=== PATIENT | female | born 1995 | race African-American/Black ===

== ENCOUNTER 2017-07-08 17:29 | Inpatient (IN) | payer BC, OTHER ==
[2017-07-08] MEDS ORDERED: SODIUM CHLORIDE 1,000 ML IV STA (17:43)
--- NOTE | 2017-07-08 17:57 | PDOC ---
History of Present Illness - General Chief Complaint: Blood Sugar Problem Stated Complaint: blood sugar r/o dka Time Seen by Provider: 07/08/17 17:56 History Source: Patient Exam Limitations: No Limitations Past History - Past Medical History Allergies/Adverse Reactions: Allergies Allergy/AdvReac Type Severity Reaction Status Date / Time steroids Allergy Uncoded 07/08/17 17:33 Diabetes: Yes (iddm) Thyroid Disease: Yes (hypo) - Psycho/Social/Smoking Cessation Hx Anxiety: No Suicidal Ideation: No Smoking History: Never smoked Have you smoked in the past 12 months: No Information on smoking cessation initiated: No Hx Alcohol Use: No Drug/Substance Use Hx: No Substance Use Type: None *Physical Exam - Vital Signs Last Vital Signs Temp Pulse Resp BP Pulse Ox 98.2 F 119 H 26 H 145/66 100 07/08/17 17:33 07/08/17 17:33 07/08/17 17:33 07/08/17 17:33 07/08/17 17:33 Medical Decision Making - Medical Decision Making 07/08/17 17:57 A portion of this note was documented by scribe services under my direction. I have reviewed the details of the note, within reason, and agree with the documentation with the following case summary and management plan written by me. Nursing documentation reviewed and incorporated into medical decision making
--- NOTE | 2017-07-08 17:58 | PDOC ---
History of Present Illness - General History Source: Patient Exam Limitations: No Limitations - History of Present Illness Initial Comments: 07/08/17 18:29 Patient is a 21 year old female with a significant past medical history of IDDM , hypothyroid and hx of DKA who presents to the ED with difficulty breathing and constant chest discomfort since last night. Patient reports nausea and multiple episode of yellow emesis since this morning. Patient reports mid abdominal discomfort. She also reports decreased PO intake and urinary output. She states that she last measured her blood sugar 2 days ago to be 30. She states that her last insulin injection was a day ago. She states that her last levothyroxine dose was couple of weeks ago. ALL - steroids <Patricia Chambers - Last Filed: 07/09/17 01:16> <Nicolas Jimenez - Last Filed: 07/09/17 01:36> - General Chief Complaint: Blood Sugar Problem Stated Complaint: blood sugar r/o dka Time Seen by Provider: 07/08/17 17:56 Past History <Patricia Chambers - Last Filed: 07/09/17 01:16> - Past Medical History Diabetes: Yes (iddm) Thyroid Disease: Yes (hypo) - Psycho/Social/Smoking Cessation Hx Anxiety: No Suicidal Ideation: No Smoking History: Never smoked Have you smoked in the past 12 months: No Information on smoking cessation initiated: No Hx Alcohol Use: No Drug/Substance Use Hx: No Substance Use Type: None <Nicolas Jimenez - Last Filed: 07/09/17 01:36> - Past Medical History Allergies/Adverse Reactions: Allergies Allergy/AdvReac Type Severity Reaction Status Date / Time Corticosteroids Allergy Verified 07/08/17 18:13 (Glucocorticoids) steroids Allergy Uncoded 07/08/17 17:33 Review of Systems - Review of Systems Able to Perform ROS?: Yes Comments:: 07/08/17 18:30 CONSTITUTIONAL: No fever, no chills, no fatigue EYES: No visual changes ENT: No ear pain, no sore throat CARDIOVASCULAR: +chest discomfort. No chest pain, no palpitations RESPIRATORY: +SOB. No cough GI: +abdominal discomfort, nausea, vomiting . No abdominal pain, no constipation , no diarrhea GENITOURINARY: No dysuria, no frequency, no hematuria MUSKULOSKELETAL: No backpain, no joint pain, no myalgias SKIN: No rash NEURO: No headache <Patricia Chambers - Last Filed: 07/09/17 01:16> *Physical Exam - Vital Signs Last Vital Signs Temp Pulse Resp BP Pulse Ox 98.2 F 119 H 26 H 145/66 100 07/08/17 17:33 07/08/17 17:33 07/08/17 17:33 07/08/17 17:33 07/08/17 17:33 - Physical Exam Comments: 07/08/17 18:31 CONSTITUTIONAL: (+)Pale appearing, +in moderate distress HEAD: Normocephalic; atraumatic EYES: (+)Dry mucous membranes. No conjunctival pallor. Sclera are non- icteric.PERRL; EOM intact ENMT: External appears normal; normal oropharynx NECK: Supple; nontender; no cervical lymphadenopathy CARD: (+)tachycardia. Normal S1, S2; no murmurs, rubs, or gallops RESP: (+)extremely tachypneic. Normal chest excursion with respiration; breath sounds clear and equal bilaterally; no wheezes, rhonchi, or rales ABD: Soft, non-distended; non-tender; no palpable organomegaly, no palpable hernias EXT: Normal ROM in all four extremities; non-tender to palpation; distal pulses intact SKIN: Warm, dry, no rash NEURO: No focal neurological deficiencies. <Patricia Chambers - Last Filed: 07/09/17 01:16> - Vital Signs Last Vital Signs Temp Pulse Resp BP Pulse Ox 98.2 F 119 H 26 H 145/66 100 07/08/17 17:33 07/08/17 17:33 07/08/17 17:33 07/08/17 17:33 07/08/17 17:33 <Nicolas Jimenez - Last Filed: 07/09/17 01:36> Heart Score/ECG Review #1 07/08/17 18:38 Sinus tachycardia at 117 bpm <Patricia Chambers - Last Filed: 07/09/17 01:16> ED Treatment Course - LABORATORY CBC & Chemistry Diagram: 07/08/17 18:15 07/08/17 22:30 <Patricia Chambers - Last Filed: 07/09/17 01:16> - LABORATORY CBC & Chemistry Diagram: 07/08/17 18:15 07/08/17 22:30 <Nicolas Jimenez - Last Filed: 07/09/17 01:36> Medical Decision Making - Critical Care Time Total Critical Care Time (minutes): 55 Critical Care Statement: The care of this patient involved high complexity decision making to prevent further life threatening deterioration of the patient 's condition and/or to evaluate & treat vital organ system(s) failure or risk of failure. - Medical Decision Making 07/09/17 01:31 Patient was seen and evaluated by me immediately upon arrival. This MDM is being recorded post admission. Patient is ill-appearing 21-year-old female with history of diabetes and hypothyroidism (noncompliant with her medication regimen) who presents to the ER with atraumatic substernal chest discomfort that is reproducible to palpation , polydipsia and polyuria, generalized weakness and malaise. In the ER, patient is tachypneic with Kussmaul's respirations; patient is also noted to be mildly tachycardic and normotensive. CBC is within normal limit. CMP reveals significant hyperglycemia, increased anion gap, decreased sodium bicarbonate and mildly increased potassium consistent with diabetic ketoacidosis. VBG reveals significant acidosis with pH of 7.04. Acetone is noted to be 3+. EKG reveals no evidence of acute ischemia or right sided heart strain. Chest x- ray reveals no evidence of infiltrate or effusion. I do not suspect a PE at this time. Serial abdominal exams revealed no focal tenderness. Patient had received 1500 mL of normal saline, acetaminophen and morphine-2 mg IV for pain control; insolent bolus of 10 units followed by an insolent drip of 10 units an hour was initiated. Patient was admitted to the ICU further management of DKA. <Nicolas Jimenez - Last Filed: 07/09/17 01:36> *DC/Admit/Observation/Transfer - Attestations Scribe Attestion: 07/08/17 18:34 Documentation prepared by NURIA Perez, acting as director of medical education for Nicolas Jimenez MD. <Patricia Chambers - Last Filed: 07/09/17 01:16> - Discharge Dispostion Admit: Yes - Attestations Physician Attestion: 07/09/17 01:30 The documentation was prepared by the scribe under my direct supervision. I have reviewed the documentation which correctly represents the findings, medical decision-making and critical action taken by me. <Nicolas Jimenez - Last Filed: 07/09/17 01:36> Diagnosis at time of Disposition: DKA (diabetic ketoacidoses) Qualifiers: Diabetes mellitus type: other specified (including SIDRA) Diabetes mellitus complication detail: without coma Qualified Code(s): E13.10 - Other specified diabetes mellitus with ketoacidosis without coma Hypothyroidism Qualifiers: Hypothyroidism type: unspecified Qualified Code(s): E03.9 - Hypothyroidism, unspecified - Referrals
[2017-07-08 18:29] LABS: VENOUS BLOOD GAS HCO3 5.6 meq/L (19-25)
[2017-07-08 18:30] LABS: VENOUS PH 7.04 (7.32-7.42)
[2017-07-08 18:47] LABS: BASOPHIL 0.4 % (0-2.0); EOSINOPHIL 1.2 % (0-4.5); MCH 33.7 pg (25.7-33.7); MCHC 31.7 g/dl (32.0-36.0); MEAN CELL VOLUME 106.2 fl (80-96); MEAN PLT VOLUME 9.4 fl (7.5-11.1); NEUTROPHILS 54.4 % (42.8-82.8); PLATELET COUNT 300 K/MM3 (134-434); RDW 14.9 % (11.6-15.6); WHITE BLOOD COUNT 7.7 K/mm3 (4.0-10.0)
[2017-07-08] MEDS ORDERED: ACETAMINOPHEN 1000 MG/100 ML VIAL (NON FORMULARY) IVPB ONE (18:53)
[2017-07-08] MEDS ORDERED: ACETAMINOPHEN INJECTION 100 ML IVPB ONE (18:55)
[2017-07-08 19:22] LABS: ALBUMIN 4.1 g/dl (3.4-5.0); ALK PHOS 132 U/L (45-117); AMYLASE 74 U/L (25-115); ANION GAP 24 (8-16); BILIRUBIN,TOTAL 0.8 mg/dL (0.2-1.0); CALCIUM 8.7 mg/dL (8.5-10.1); CO2 6 mmol/L (21-32); CREATININE 1.8 mg/dL (0.55-1.02); SGPT/ALT 51 U/L (12-78); TOT PROT 8.7 g/dl (6.4-8.2)
[2017-07-08 19:23] LABS: SGOT/AST 24 U/L (15-37)
[2017-07-08 19:24] LABS: GLUCOSE,RANDOM 616 mg/dL (74-106)
[2017-07-08] MEDS ORDERED: INSULIN REGULAR HUMAN 100 UNITS/ML *VIAL IVPUSH ONE (19:29)
[2017-07-08] MEDS ORDERED: morphine CARPU-JECT 2 MG/1 ML DISP.SYRIN IVPUSH ONE ×2 (19:36→19:44)
[2017-07-08] MEDS ORDERED: morphine CARPU-JECT 4 MG/1 ML DISP.SYRIN ONE (19:43)
[2017-07-08] MEDS: INSULIN REGULAR 100 UNITS in SODIUM CHLORIDE 99 ML IVPB SCH ×2 (19:59→21:30)
[2017-07-08] MEDS ORDERED: LEVOTHYROXINE NA 125 MCG TABLET (FP) PO ONE (20:09)
[2017-07-08 20:13] LABS: URINE APPEARANCE CLEAR; URINE BILIRUBIN NEGATIVE (NEGATIVE); URINE BLOOD 1+ (NEGATIVE); URINE COLOR STRAW; URINE GLUCOSE (UA) 3+ (NEGATIVE); URINE KETONE 2+ (NEGATIVE); URINE LEUK ESTERASE NEGATIVE (NEGATIVE); URINE NITRITE NEGATIVE (NEGATIVE); URINE UROBILINOGEN NEGATIVE mg/dL (0.2-1.0)
--- NOTE | 2017-07-08 20:16 | PN ---
Teaching Attending Note Name of Resident: Sergio Andrew ATTENDING PHYSICIAN STATEMENT I saw and evaluated the patient. I reviewed the resident's note and discussed the case with the resident. I agree with the resident's findings and plan as documented. SUBJECTIVE: 21 YO F with pmhx of IDDM, hypothyriodism and Hx of DKA who presents with nausea and chest discomfort. Also notes shortness of breath. States she has had mutliple vomiting episodes (yellow in color). Notes decreased PO intake and abdominal pain. States she last took her blood sugar 2 days ago and it was 30. Also notes she did not take her Levothryoxine dose and it was taken couple weeks agp. She last took her insulin 1 charles go, OBJECTIVE: Physical: VS: Vital Signs Period Temp Pulse Resp BP Sys/Kohli Pulse Ox Last 24 Hr 98.2 F 119 26 145/66 100 GEN: Mild distress, resting in bed, able to speak full sentences HEENT: NCAT, PERRL, Throat without erythema or exudates CARD: RRR S1,S2 RESP: CTAB ABD: BSx4, NTD to palpation EXT: - C/C/E CBCD WBC 7.7 K/mm3 (4.0-10.0) 07/08/17 18:15 RBC 3.76 M/mm3 (3.60-5.2) 07/08/17 18:15 Hgb 12.7 GM/dL (10.7-15.3) 07/08/17 18:15 Hct 39.9 % (32.4-45.2) 07/08/17 18:15 MCV 106.2 fl (80-96) H 07/08/17 18:15 MCHC 31.7 g/dl (32.0-36.0) L 07/08/17 18:15 RDW 14.9 % (11.6-15.6) 07/08/17 18:15 Plt Count 300 K/MM3 (134-434) 07/08/17 18:15 MPV 9.4 fl (7.5-11.1) 07/08/17 18:15 CMP Sodium 131 mmol/L (136-145) L 07/08/17 18:15 Potassium 5.5 mmol/L (3.5-5.1) H 07/08/17 18:15 Chloride 101 mmol/L (98-107) 07/08/17 18:15 Carbon Dioxide 6 mmol/L (21-32) L 07/08/17 18:15 Anion Gap 24 (8-16) H 07/08/17 18:15 BUN 16 mg/dL (7-18) 07/08/17 18:15 Creatinine 1.8 mg/dL (0.55-1.02) H 07/08/17 18:15 Creat Clearance w eGFR 35.87 (>60) 07/08/17 18:15 Random Glucose 616 mg/dL (74-106) H* 07/08/17 18:15 Calcium 8.7 mg/dL (8.5-10.1) 07/08/17 18:15 Total Bilirubin 0.8 mg/dL (0.2-1.0) 07/08/17 18:15 AST 24 U/L (15-37) 07/08/17 18:15 ALT 51 U/L (12-78) 07/08/17 18:15 Alkaline Phosphatase 132 U/L (45-117) H 07/08/17 18:15 Total Protein 8.7 g/dl (6.4-8.2) H 07/08/17 18:15 Albumin 4.1 g/dl (3.4-5.0) 07/08/17 18:15 CXR- No acute Process EKG: ASSESSMENT AND PLAN: 21 F with Pmhx of IDDM who presents with chest discomfort and shortness of breath found to be in DKA 1.) Diabetic Ketoacidosis - Insulin 0.1U/Kg/hr gtt - Serum Glucose reaches 200--> reduce insulin gtt to 0.05/kg/hr - IVF 250/hr- when glucose 200 switch to D5 1/2 NS - Corrected Na 139-1/2 NS for IVF - Chk BMP, Vebous Ph, FS Q 2hrs - Keep Insulin infusion after Gap closes for 1-2hrs, initate SC regimen, when pt. can eat - K<3.3 Hold Insulin and give K 20-40 MeQ/hr until >3.3 - K 3.3-5.3 give 20-30 MeQ/K in IVF 2.) Chest Discomfort/Shortness of Breath - Wells Score- 1.5 - Tachycardia may be due more likely to dehydration - Chk. Troponin/EKG 3.) TONI - Most likely due to pre-renal losses - Chk. U Lytes - IVF 4.) Hypothyriodism - Elevated TSH- Pt. non-compliant with Levothyroxine - Levothyroxien given in ED - C/W home dose- Chk. TSH in 6 weeks 3.) Dvt Ppx - Heparin [address] in ICU CC Time: 40 Minutes
[2017-07-08] MEDS ORDERED: SODIUM CHLORIDE 1,000 ML IV SCH (20:30)
[2017-07-08 20:39] LABS: URINE PROTEIN 1+ (NEGATIVE)
[2017-07-08] MEDS ORDERED: SODIUM CHLORIDE 0.45% 1,000 ML IV SCH ×2 (20:45→21:55)
[2017-07-08 20:49] LABS: URINE BACTERIA RARE /hpf (NONE SEEN); URINE MUCUS RARE; URINE RBC <1 /hpf (0-3); URINE WBC 2 /hpf (3-5)
--- NOTE | 2017-07-08 21:24 | HP ---
Admitting History and Physical - Admission History of Present Illness: 21yo F with significant history of IDDM, hypothyroidism, and history of DKA admission 2-3 years ago who presents to the ED with SOB, mid-sternal chest discomfort, and centrally located abdominal pain. Pt states these problems started 1 day ago and reports her last BGM was 30 about 2 days ago. Pt also reports nausea and vomiting yellowish emesis when her symptoms developed. Her godmother is with her and describes pt being in normal health about 2 days ago and receiving a call earlier this afternoon about the pt needing to go to the hospital. Godmother reports her symptoms have been the same since she met up with her and the CP and SOB have been consistent and not increased in intensity since. Pt was hospitalized for DKA about 2 years prior according to family's accounts. Per patient, she had stopped taking her levothyroxine "a few days ago " (hypothesized by family because of financial reasons), however she states she is very consistent with insulin injections. Her last injection was 1 day ago. Denies any acute illnesses, dizziness, headache, and leg edema. ER course notable for: 1) EKG - NSR @114 bpm, no other abnormalities seen 2) CXR - by my read no cardiomegaly, no congestion, no infilitrates noted; normal 3) CMP - 616 random glucose, 1.8 Cr, corrected Na of 139, HCO3 6, K 5.6; UA - Ketonuria; TSH - 4) VBG - pH of 7.06 5) Insulin bolus of 8 initiated with insulin gtt 6) Levothyroxine 125mcg administered 7) 1L NS administered History Source: Patient, Family Member - Past Medical History Endocrine: Yes: Diabetes Mellitus (IDDM), Hypothyroidism - Past Surgical History Additional Past Surgical History: L leg Anterior fasciotomy for compartment syndrome s/p trauma - 2 years ago - Smoking History Smoking history: Never smoked Have you smoked in the past 12 months: No - Alcohol/Substance Use Hx Alcohol Use: No History of Substance Use: reports: None - Social History History of Recent Travel: No Home Medications - Allergies Allergies/Adverse Reactions: Allergies Allergy/AdvReac Type Severity Reaction Status Date / Time Corticosteroids Allergy Verified 07/08/17 18:13 (Glucocorticoids) steroids Allergy Uncoded 07/08/17 17:33 Review of Systems - Review of Systems Constitutional: reports: Loss of Appetite Respiratory: reports: SOB Gastrointestinal: reports: Abdominal Pain, Nausea, Vomiting Genitourinary: reports: Other (Polyuria) Neurological: denies: Dizziness, Headache Physical Examination Vital Signs: Vital Signs Temperature 98.2 F 07/08/17 17:33 Pulse Rate 119 H 07/08/17 17:33 Respiratory Rate 26 H 07/08/17 17:33 Blood Pressure 145/66 07/08/17 17:33 O2 Sat by Pulse Oximetry (%) 100 07/08/17 17:33 Constitutional: Yes: Moderate Distress Eyes: Yes: Conjunctiva Clear, EOM Intact, PERRL HENT: Yes: Other (Sweet smelling breath) Neck: Yes: Supple, Trachea Midline Cardiovascular: Yes: Tachycardia (regular rhythm). No: Murmur Respiratory: Yes: Tachypnea. No: Accessory Muscle Use, On Nasal O2, Rhonchi, Wheezes Gastrointestinal: Yes: Soft, Tenderness. No: Hepatomegaly, Splenomegaly, Tenderness, Rebound, Vomiting Edema: No Neurological: Yes: Alert Psychiatric: Yes: Alert Imaging - Results Chest X-ray: Image Reviewed EKG: Image Reviewed Assessment/Plan UPDATE 00:01 07/09 --First BMP recheck came back with Serum glucose at 207 (from 616), Anion gap remaining at 24, serum CO2 down to 3 (from 6), K 4.1 (down from 5.6) --Will change fluids to D5-1/2NS-40mEQKCl at a rate of 300 mls/hr (increased from 250mls/hr) due to these changes -- 21yo F IDDM and hypothyroidism presenting with DKA in ER. CP noted mid-sternally ; ekg: NSR, tachycardia, no ST abnormalities seen; 1) DKA --serum CO2 6, VBG 7.06, Anion gap of 24, Ketonuria, K 5.6, Glucose 616 --BGM q1-2H --VBG q2H --BMP q2H --Continue insulin gtt 0.1 U/kg/hr IV --IF gap remains open and glucose 200-250 decrease dose to 0.02-0.05U/kg/ hr IV and add D5 to fluids --IF gap closes and patient tolerates PO, continue drip 1-2hrs while long- acting insulin administered; then d/c drip --1/2NS @250mls/hr --Corrected Na 139 currently --No need for K rider due to K 5.6 initially; will monitor 2) Chest discomfort --Troponin negative x1; will trend one more due to symptoms --EKG - NSR Tachycardic and no ST abnormalities --Wells score - 1.5 --CXR normal --Morphine 4mg q6 PRN on board for pain control --Most likely related to acidosis from DKA; will continue to monitor 3) Hypothyroidism --TSH 86.6 --Related to noncompliance to home dose --Levothyroxine 125mcg given in ER x1 --Continue home dose of 150mcg Daily (godmother confirmed 150mcg dosage) --Outpatient follow-up with cooler worker for TFT monitoring 4) TONI --Most likely pre-renal azotemia related to DKA --Urine Cr 1.8 currently with no baseline --F/U urine lytes --Will monitor and hydrate per DKA plan FEN: Fluids: 1/2NS @250mls/hr Electrolyte abnormalities: Corrected Na139; K5.6 will decrease with insulin therapy (monitor) Nutrition: NPO for now, advance as tolerated when anion gap closes PPX: DVT -- Heparin 5000SQ q8 GI -- Not indicated at current time Dispo: Admit to ICU for DKA management Visit type - Emergency Visit Emergency Visit: Yes ED Registration Date: 07/08/17 Care time: The patient presented to the Emergency Department on the above date and was hospitalized for further evaluation of their emergent condition. - New Patient This patient is new to me today: Yes Date on this admission: 07/09/17 - Critical Care Critical Care patient: Yes Total Critical Care Time (in minutes): 40 Critical Care Statement: The care of this patient involved high complexity decision making to prevent further life threatening deterioration of the patient 's condition and/or to evaluate & treat vital organ system(s) failure or risk of failure.
[2017-07-08 21:42] VITALS: BMI 27.2
[2017-07-08] MEDS: CHLORHEXIDINE GLUCONATE 4% CLEANSER FOR DECOLONIZATION TP SCH (22:16)
[2017-07-08] MEDS: MUPIROCIN 2% TOPICAL OINTMENT FOR DECOLONIZATION NS SCH (22:16)
--- NOTE | 2017-07-08 22:36 | CONSULT ---
Consult - text type - Consultation Consultation Note: PULM/CCM Pt seen and examined in the ICU Request: Jasmina CC: Shortness of breath Hx obtained from Pt and Chart HPI: Briefly Ms Valdez is a 21 y/o woman with PHMX significant for IDDM (occ. admits for DKA/hyperglycemia), and hypothyroidism who presented to ED this afternoon with shortness of breath, upper epigastric/mid sternal pain, abd pain and vomititng x 24 hrs. She relates stopping her home insulin 48hrs ago when she had a low sugar. She also stopped her thyroid meds a few days prior to that. She has had non-bloody bilious emesis starting around the same time. There may be financial problems driving some of her compliance issues but per pt Godmother she is generally pretty diligent with her insulin. She denies LOC , fever, dysuria, cough, diarrhea, falls. In ED pt was normothermic, normotensive, saturating fine on RA. CXR was clear. UA was clean but with +ketones. Labs notable for glucose 616, HCo3 6, K 5.6, Cr of 1.8. AG was 25. TSH elevated >80. pH 7.0 on VBG. Her corrected Na was 139, but pt appeared clinically dry. She received bolus and gtt of Insulin. Two liters of fluid given. IV synthroid given as well. As there was no localizing source of infection and a clear hx of compliance issue no abx were started. Tx to ICU for management on diabetic ketoacidosis. Past Medical History Endocrine Diabetes Mellitus (IDDM),Hypothyroidism No past surgeries Social History Smoking history Never smoked Have you smoked in the past 12 No months Hx Alcohol Use No History of Substance Use None Home Meds: Insulin synthroid Active Medications Chlorhexidine Gluconate (Hibiclens For Decolonization -) 1 applic TP HS CHELLE Last Admin: 07/08/17 22:16 Dose: 1 applic Heparin Sodium (Porcine) (Heparin -) 5,000 unit SQ TID CHELLE Insulin Human Regular 100 (units/ Sodium Chloride) 100 mls @ 9.97 mls/hr IVPB TITR CHELLE; 0.1 UNITS/KG/HR PRN Reason: Protocol Last Admin: 07/08/17 21:30 Dose: 10 mls/hr Sodium Chloride (1/2 Normal Saline) 1,000 mls @ 250 mls/hr IV ASDIR CHELLE Last Admin: 07/08/17 22:15 Dose: 250 mls/hr Levothyroxine Sodium (Synthroid -) 150 mcg PO DAILY@0700 [facility] Morphine Sulfate (Morphine Injection -) 4 mg IVPUSH Q4H PRN PRN Reason: PAIN Mupirocin (Bactroban Ointment (For Decolonization) -) 1 applic NS BID [facility] Stop: 07/13/17 21:59 Last Admin: 07/08/17 22:16 Dose: 1 applic 9 point ROS unrevealing except as above in HPI EKG: ST, normal axis, no ST changes CXR: clear, no infiltrate Vital Signs Temp 97.8 F 07/08/17 20:25 Pulse 109 H 07/08/17 20:25 Resp 16 07/08/17 20:25 BP 120/85 07/08/17 20:25 Pulse Ox 99 07/08/17 20:25 Intake & Output 07/07/17 07/08/17 07/08/17 23:59 11:59 23:59 Weight 83.603 kg Other: Voiding Method Indwelling Catheter Height 5 ft 9 in Body Mass Index (BMI) 27.2 Weight Measurement Method Built in [facility] Weight Measurement Method Est/Stated by Patient PE: HEENT: dry oral mucosa, no thrush, PERRL PULM: clear anterior, no wheezes CV: tachy, regular, no m/r/g appreciated ABG: soft, slight diffuse tenderness, non localizing, no rebound EXT: dry skin, no edema Neuro: intact, non focal exam A/ 21 y/o woman with DKA, TONI, and hypothyroidism in setting of compliance issues. ENDO: DKA, hypothyroidism -Q1h FS -repeat BMP sent, replete K < 5. -Continue insulin gtt 0.1 U/kg/hr IV until gap closed, glucose < 25 and able to eat, then transition with 2 hr bridge -If gap remains open and glucose 200-250 decrease dose to 0.02-0.05U/kg/hr IV and add D5 to fluids -DM education -IV synthroid given in ED, start PO tomorrow at normal dose, repeat TSH prior to discharge Renal : TONI likely pre-renal, dehydration/osmotic diuresis -volume resuscitation -close monitoring of UOP -urine lytes/FENA FEN: Fluids: 1/2NS @250mls/hr for 4 hrs then decrease to 125 Nutrition: NPO for now, advance as tolerated when anion gap closes PPX: DVT -- Heparin 5000SQ q8, no indication for GI prophy Dispo: ICU monitoring, med surg once gap closed and eating Jatin Dhillon ACNP [id number] 35min CCT Critical Care Total Critical Care Time (in minutes): 35 Critical Care Statement: The care of this patient involved high complexity decision making to prevent further life threatening deterioration of the patient 's condition and/or to evaluate & treat vital organ system(s) failure or risk of failure.
[2017-07-08 23:08] LABS: CALCIUM 7.7 mg/dL (8.5-10.1); CREATININE 1.3 mg/dL (0.55-1.02); GLUCOSE,RANDOM 207 mg/dL (74-106)
[2017-07-08 23:11] LABS: ANION GAP 24 (8-16); CO2 3 mmol/L (21-32)
[2017-07-08] MEDS: D5-1/2NS+40 MEQ KCL - 1,000 ML IV SCH (23:48)
[2017-07-09] MEDS: morphine CARPU-JECT 4 MG/1 ML DISP.SYRIN IVPUSH PRN ×2 (02:44→23:45)
[2017-07-09 02:58] LABS: VENOUS BLOOD GAS HCO3 10.4 meq/L (19-25); VENOUS PH 7.22 (7.32-7.42)
[2017-07-09 03:31] LABS: ANION GAP 19 (8-16); CALCIUM 7.7 mg/dL (8.5-10.1); CO2 10 mmol/L (21-32); CREATININE 1.3 mg/dL (0.55-1.02); GLUCOSE,RANDOM 175 mg/dL (74-106)
[2017-07-09] MEDS: HEPARIN NA (PORCINE) 5,000 UNITS/ML 1ML VIAL SQ SCH ×4 (05:42→21:39)
[2017-07-09] MEDS: LEVOTHYROXINE NA 75 MCG TABLET (FP) PO SCH (06:40)
[2017-07-09] MEDS: D5-1/2NS+40 MEQ KCL - 1,000 ML IV SCH ×2 (06:41→23:30)
[2017-07-09] MEDS ORDERED: LEVOTHYROXINE NA 50 MCG TABLET (FP) PO SCH (07:00)
[2017-07-09 08:46] LABS: URINE CREATININE < 13.0 mg/dL (20-320)
[2017-07-09 09:07] LABS: ANION GAP 12 (8-16); CALCIUM 7.2 mg/dL (8.5-10.1); CO2 13 mmol/L (21-32); CREATININE 1.2 mg/dL (0.55-1.02); GLUCOSE,RANDOM 152 mg/dL (74-106)
--- NOTE | 2017-07-09 10:01 | PN ---
Teaching Attending Note Name of Resident: Sergio Alexandre ATTENDING PHYSICIAN STATEMENT I saw and evaluated the patient. I reviewed the resident's note and discussed the case with the resident. I agree with the resident's findings and plan as documented. SUBJECTIVE: Patient seen and examined in the ICU. Sleepy but arousable. Remains on IV Insulin drip. Noted improving AG, but bicarb still only 13 (likely related to TONI). Intake & Output 07/06/17 07/07/17 07/08/17 07/09/17 23:59 23:59 23:59 23:59 Output Total 800 900 Balance -800 -900 Weight 184 lb 5 oz 190 lb Last Vital Signs Temp Pulse Resp BP Pulse Ox 98 F 98 H 14 94/49 99 07/09/17 03:00 07/09/17 08:00 07/09/17 08:00 07/09/17 08:00 07/08/17 20:25 Active Medications Acetaminophen (Tylenol -) 650 mg PO Q4H PRN PRN Reason: FEVER OR PAIN Chlorhexidine Gluconate (Hibiclens For Decolonization -) 1 applic TP HS CHELLE Last Admin: 07/08/17 22:16 Dose: 1 applic Heparin Sodium (Porcine) (Heparin -) 5,000 unit SQ TID CHELLE Last Admin: 07/09/17 06:54 Dose: Not Given Insulin Human Regular 100 (units/ Sodium Chloride) 100 mls @ 9.97 mls/hr IVPB TITR CHELLE; 0.1 UNITS/KG/HR PRN Reason: Protocol Last Titration: 07/09/17 00:43 Dose: 0.02 units/kg/hr Dextrose/Sodium Chloride (D5-1/2ns+40 Meq Kcl -) 1,000 mls @ 300 mls/hr IV ASDIR CHELLE Last Admin: 07/09/17 06:41 Dose: 300 mls/hr Levothyroxine Sodium (Synthroid -) 150 mcg PO DAILY@0700 [facility] Last Admin: 07/09/17 06:40 Dose: 150 mcg Morphine Sulfate (Morphine Injection -) 4 mg IVPUSH Q4H PRN PRN Reason: PAIN Last Admin: 07/09/17 02:44 Dose: 4 mg Mupirocin (Bactroban Ointment (For Decolonization) -) 1 applic NS BID CHELLE Stop: 08/20/17 21:59 Last Admin: 07/08/17 22:16 Dose: 1 applic Constitutional: Yes: Sleepy but arousable Eyes: Yes: Conjunctiva Clear, EOM Intact, PERRL HENT: Yes: dry mucous membranes Neck: Yes: Supple, Trachea Midline Cardiovascular: Yes: Tachycardia (regular rhythm). No: Murmur Respiratory: Yes: Clear. No: Accessory Muscle Use, On Nasal O2, Rhonchi, Wheezes Gastrointestinal: Yes: Soft, Tenderness. No: Hepatomegaly, Splenomegaly, Tenderness, Rebound, Vomiting Edema: No Neurological: Yes: Sleepy Psychiatric: Yes: Sleepy Laboratory Results - last 24 hr 07/08/17 07/08/17 07/08/17 18:00 18:06 18:15 WBC 7.7 RBC 3.76 Hgb 12.7 Hct 39.9 MCV 106.2 H MCH 33.7 MCHC 31.7 L RDW 14.9 Plt Count 300 MPV 9.4 Neutrophils % 54.4 Lymphocytes % 36.6 Monocytes % 7.4 Eosinophils % 1.2 Basophils % 0.4 VBG pH 7.04 L* POC VBG pCO2 21.5 L POC VBG pO2 32.6 Mixed VBG HCO3 5.6 L* Sodium Potassium Chloride Carbon Dioxide Anion Gap BUN Creatinine Creat Clearance w eGFR POC Glucometer Random Glucose Lactic Acid Calcium Magnesium Total Bilirubin AST ALT Alkaline Phosphatase Troponin I < 0.02 Total Protein Albumin Total Amylase Lipase TSH Serum , Qual Urine Color Urine Appearance Urine pH Ur Specific [place] Urine Protein Urine Glucose (UA) Urine Ketones Urine Blood Urine Nitrite Urine Bilirubin Urine Urobilinogen Ur Leukocyte Esterase Urine RBC Urine WBC Urine Bacteria Urine Mucus Urine Creatinine Acetone, Qual 07/08/17 07/08/17 07/08/17 18:15 18:15 18:15 WBC RBC Hgb Hct MCV MCH MCHC RDW Plt Count MPV Neutrophils % Lymphocytes % Monocytes % Eosinophils % Basophils % VBG pH POC VBG pCO2 POC VBG pO2 Mixed VBG HCO3 Sodium 131 L Potassium 5.5 H Chloride 101 Carbon Dioxide 6 L Anion Gap 24 H BUN 16 Creatinine 1.8 H Creat Clearance w eGFR 35.87 POC Glucometer Random Glucose 616 H* Lactic Acid Calcium 8.7 Magnesium Total Bilirubin 0.8 AST 24 ALT 51 Alkaline Phosphatase 132 H Troponin I Total Protein 8.7 H Albumin 4.1 Total Amylase 74 Lipase 573 H TSH Serum , Qual Negative Urine Color Straw Urine Appearance Clear Urine pH 5.0 Ur Specific [place] 1.015 Urine Protein 1+ H Urine Glucose (UA) 3+ H Urine Ketones 2+ H Urine Blood 1+ H Urine Nitrite Negative Urine Bilirubin Negative Urine Urobilinogen Negative Ur Leukocyte Esterase Negative Urine RBC <1 Urine WBC 2 Urine Bacteria Rare Urine Mucus Rare Urine Creatinine Acetone, Qual Positive large 3+ H 07/08/17 07/08/17 07/08/17 18:15 18:15 21:10 WBC RBC Hgb Hct MCV MCH MCHC RDW Plt Count MPV Neutrophils % Lymphocytes % Monocytes % Eosinophils % Basophils % VBG pH POC VBG pCO2 POC VBG pO2 Mixed VBG HCO3 Sodium Potassium Chloride Carbon Dioxide Anion Gap BUN Creatinine Creat Clearance w eGFR POC Glucometer Random Glucose Lactic Acid Calcium Magnesium 2.6 H Total Bilirubin AST ALT Alkaline Phosphatase Troponin I Total Protein Albumin Total Amylase Lipase TSH 86.60 H Serum , Qual Urine Color Urine Appearance Urine pH Ur Specific [place] Urine Protein Urine Glucose (UA) Urine Ketones Urine Blood Urine Nitrite Urine Bilirubin Urine Urobilinogen Ur Leukocyte Esterase Urine RBC Urine WBC Urine Bacteria Urine Mucus Urine Creatinine Cancelled Acetone, Qual 07/08/17 07/08/17 07/08/17 21:10 21:19 22:12 WBC RBC Hgb Hct MCV MCH MCHC RDW Plt Count MPV Neutrophils % Lymphocytes % Monocytes % Eosinophils % Basophils % VBG pH POC VBG pCO2 POC VBG pO2 Mixed VBG HCO3 Sodium Potassium Chloride Carbon Dioxide Anion Gap BUN Creatinine Creat Clearance w eGFR POC Glucometer 376.03687 262.16131 Random Glucose Lactic Acid Calcium Magnesium Total Bilirubin AST ALT Alkaline Phosphatase Troponin I Total Protein Albumin Total Amylase Lipase TSH Serum , Qual Urine Color Urine Appearance Urine pH Ur Specific [place] Urine Protein Urine Glucose (UA) Urine Ketones Urine Blood Urine Nitrite Urine Bilirubin Urine Urobilinogen Ur Leukocyte Esterase Urine RBC Urine WBC Urine Bacteria Urine Mucus Urine Creatinine < 13.0 L Acetone, Qual 07/08/17 07/08/17 07/08/17 22:30 22:30 23:16 WBC RBC Hgb Hct MCV MCH MCHC RDW Plt Count MPV Neutrophils % Lymphocytes % Monocytes % Eosinophils % Basophils % VBG pH POC VBG pCO2 POC VBG pO2 Mixed VBG HCO3 Sodium 140 Potassium 4.1 D Chloride 113 H D Carbon Dioxide 3 L D Anion Gap 24 H BUN 13 Creatinine 1.3 H D Creat Clearance w eGFR POC Glucometer [phone] Random Glucose 207 H D Lactic Acid 3.7 H* Calcium 7.7 L Magnesium Total Bilirubin AST ALT Alkaline Phosphatase Troponin I Total Protein Albumin Total Amylase Lipase TSH Serum , Qual Urine Color Urine Appearance Urine pH Ur Specific [place] Urine Protein Urine Glucose (UA) Urine Ketones Urine Blood Urine Nitrite Urine Bilirubin Urine Urobilinogen Ur Leukocyte Esterase Urine RBC Urine WBC Urine Bacteria Urine Mucus Urine Creatinine Acetone, Qual 07/09/17 07/09/17 07/09/17 00:39 01:55 02:45 WBC RBC Hgb Hct MCV MCH MCHC RDW Plt Count MPV Neutrophils % Lymphocytes % Monocytes % Eosinophils % Basophils % VBG pH POC VBG pCO2 POC VBG pO2 Mixed VBG HCO3 Sodium 142 Potassium 4.6 Chloride 113 H Carbon Dioxide 10 L D Anion Gap 19 H BUN 12 Creatinine 1.3 H Creat Clearance w eGFR POC Glucometer 139.76250 150.99128 Random Glucose 175 H Lactic Acid Calcium 7.7 L Magnesium Total Bilirubin AST ALT Alkaline Phosphatase Troponin I Total Protein Albumin Total Amylase Lipase TSH Serum , Qual Urine Color Urine Appearance Urine pH Ur Specific [place] Urine Protein Urine Glucose (UA) Urine Ketones Urine Blood Urine Nitrite Urine Bilirubin Urine Urobilinogen Ur Leukocyte Esterase Urine RBC Urine WBC Urine Bacteria Urine Mucus Urine Creatinine Acetone, Qual 07/09/17 07/09/17 07/09/17 02:45 02:48 03:17 WBC RBC Hgb Hct MCV MCH MCHC RDW Plt Count MPV Neutrophils % Lymphocytes % Monocytes % Eosinophils % Basophils % VBG pH 7.22 L* D POC VBG pCO2 26.5 L D POC VBG pO2 22.9 L D Mixed VBG HCO3 10.4 L* Sodium Potassium Chloride Carbon Dioxide Anion Gap BUN Creatinine Creat Clearance w eGFR POC Glucometer 157.63316 Random Glucose Lactic Acid 2.1 H* Calcium Magnesium Total Bilirubin AST ALT Alkaline Phosphatase Troponin I Total Protein Albumin Total Amylase Lipase TSH Serum , Qual Urine Color Urine Appearance Urine pH Ur Specific [place] Urine Protein Urine Glucose (UA) Urine Ketones Urine Blood Urine Nitrite Urine Bilirubin Urine Urobilinogen Ur Leukocyte Esterase Urine RBC Urine WBC Urine Bacteria Urine Mucus Urine Creatinine Acetone, Qual 07/09/17 07/09/17 07/09/17 04:09 05:30 08:10 WBC RBC Hgb Hct MCV MCH MCHC RDW Plt Count MPV Neutrophils % Lymphocytes % Monocytes % Eosinophils % Basophils % VBG pH POC VBG pCO2 POC VBG pO2 Mixed VBG HCO3 Sodium 139 Potassium 4.8 Chloride 114 H Carbon Dioxide 13 L D Anion Gap 12 BUN 8 D Creatinine 1.2 H Creat Clearance w eGFR POC Glucometer 158.68722 164.85443 Random Glucose 152 H Lactic Acid Calcium 7.2 L Magnesium Total Bilirubin AST ALT Alkaline Phosphatase Troponin I Total Protein Albumin Total Amylase Lipase TSH Serum , Qual Urine Color Urine Appearance Urine pH Ur Specific [place] Urine Protein Urine Glucose (UA) Urine Ketones Urine Blood Urine Nitrite Urine Bilirubin Urine Urobilinogen Ur Leukocyte Esterase Urine RBC Urine WBC Urine Bacteria Urine Mucus Urine Creatinine Acetone, Qual 07/09/17 07/09/17 08:10 08:51 WBC RBC Hgb Hct MCV MCH MCHC RDW Plt Count MPV Neutrophils % Lymphocytes % Monocytes % Eosinophils % Basophils % VBG pH POC VBG pCO2 POC VBG pO2 Mixed VBG HCO3 Sodium Potassium Chloride Carbon Dioxide Anion Gap BUN Creatinine Creat Clearance w eGFR POC Glucometer 154.49517 Random Glucose Lactic Acid 1.9 Calcium Magnesium Total Bilirubin AST ALT Alkaline Phosphatase Troponin I Total Protein Albumin Total Amylase Lipase TSH Serum , Qual Urine Color Urine Appearance Urine pH Ur Specific [place] Urine Protein Urine Glucose (UA) Urine Ketones Urine Blood Urine Nitrite Urine Bilirubin Urine Urobilinogen Ur Leukocyte Esterase Urine RBC Urine WBC Urine Bacteria Urine Mucus Urine Creatinine Acetone, Qual IMP: DKA TONI Hypothyroidism Non:compliance issues. PLAN: IV Insulin drip O2 as needed Although the AG is closing Bicarb is still only 13 (likely related to TONI), but for now would keep Insulin drip Follow BMP in 4 hours VTE prophylaxis PO as tolerated Dr Morse Critical Care Total Critical Care Time (in minutes): 35 Critical Care Statement: The care of this patient involved high complexity decision making to prevent further life threatening deterioration of the patient 's condition and/or to evaluate & treat vital organ system(s) failure or risk of failure.
--- NOTE | 2017-07-09 10:17 | PN ---
Physical Exam: SUBJECTIVE: Patient seen and examined this AM in presence of mother. Pt extremely somnolent but gradually awakens to verbal and tactile stimuli. Admits to slight MCDONALD as well as chest pain which she describes as "crunching". Admits to continued abdominal pain with R side > L. Denies hx of gallstones, admits to hx postprandial abdominal pain after spicy foods. Denies alcohol use, smoking or rec drug use. Pt has no other acute issues at this time. OBJECTIVE: Vital Signs Period Temp Pulse Resp BP Sys/Kohli Pulse Ox Last 24 Hr 97.6 F-98 F 93-109 12- 92-120/62-85 GENERAL: The patient is somnolent but awakens gradually to verbal stimuli; appears mildly uncomfortable HEAD: Normal with no signs of trauma. EYES: Closed for majority of exam; sclera anicteric, conjunctiva clear. No ptosis. ENT: oropharynx clear without exudates, moist mucous membranes NECK: Trachea midline LUNGS: Breath sounds equal, clear to auscultation bilaterally in anterior and posterior lung salas, no wheezes, no crackles, no accessory muscle use, breathing comfortably on exam HEART: Regular rate and rhythm, S1, S2 without murmur, rub or gallop. Slight tenderness to palpation of chest wall ABDOMEN: Soft, significant tenderness to palpation in epigastric and lower abdominal regions, nondistended, slight guarding, no masses. EXTREMITIES: 2+ L radial pulse, warm, well-perfused, no LE edema NEUROLOGICAL: Oriented to person and place; education program associate strength 2/5 b/l, muscle strength 1/5 in b/l LE. Muffled speech PSYCH: Somnolent but cooperative, not agitated SKIN: Warm, dry, normal turgor, no rashes or lesions noted Laboratory Results - last 24 hr 07/08/17 07/08/17 07/08/17 21:10 21:10 21:19 VBG pH POC VBG pCO2 POC VBG pO2 Mixed VBG HCO3 Sodium Potassium Chloride Carbon Dioxide Anion Gap BUN Creatinine POC Glucometer [phone] Random Glucose Lactic Acid Calcium Urine Creatinine Cancelled < 13.0 L 07/08/17 07/08/17 07/08/17 22:12 22:30 22:30 VBG pH POC VBG pCO2 POC VBG pO2 Mixed VBG HCO3 Sodium 140 Potassium 4.1 D Chloride 113 H D Carbon Dioxide 3 L D Anion Gap 24 H BUN 13 Creatinine 1.3 H D POC Glucometer 262.24021 Random Glucose 207 H D Lactic Acid 3.7 H* Calcium 7.7 L Urine Creatinine 07/08/17 07/09/17 07/09/17 23:16 00:39 01:55 VBG pH POC VBG pCO2 POC VBG pO2 Mixed VBG HCO3 Sodium Potassium Chloride Carbon Dioxide Anion Gap BUN Creatinine POC Glucometer 161.14179 139.06672 150.99167 Random Glucose Lactic Acid Calcium Urine Creatinine 07/09/17 07/09/17 07/09/17 02:45 02:45 02:48 VBG pH 7.22 L* D POC VBG pCO2 26.5 L D POC VBG pO2 22.9 L D Mixed VBG HCO3 10.4 L* Sodium 142 Potassium 4.6 Chloride 113 H Carbon Dioxide 10 L D Anion Gap 19 H BUN 12 Creatinine 1.3 H POC Glucometer Random Glucose 175 H Lactic Acid 2.1 H* Calcium 7.7 L Urine Creatinine 07/09/17 07/09/17 07/09/17 03:17 04:09 05:30 VBG pH POC VBG pCO2 POC VBG pO2 Mixed VBG HCO3 Sodium Potassium Chloride Carbon Dioxide Anion Gap BUN Creatinine POC Glucometer 157.22622 158.72882 164.09333 Random Glucose Lactic Acid Calcium Urine Creatinine 07/09/17 07/09/17 07/09/17 08:10 08:10 08:51 VBG pH POC VBG pCO2 POC VBG pO2 Mixed VBG HCO3 Sodium 139 Potassium 4.8 Chloride 114 H Carbon Dioxide 13 L D Anion Gap 12 BUN 8 D Creatinine 1.2 H POC Glucometer 154.87699 Random Glucose 152 H Lactic Acid 1.9 Calcium 7.2 L Urine Creatinine Active Medications Generic Name Dose Route Start Last Admin Trade Name Freq PRN Reason Stop Dose Admin Chlorhexidine Gluconate 1 applic 07/08/17 22:00 07/08/17 22:16 Hibiclens For Decolonization - TP 1 applic HS [facility] Administration Heparin Sodium (Porcine) 5,000 unit 07/09/17 06:00 07/09/17 06:54 Heparin - SQ Not Given TID [facility] Insulin Human Regular 100 100 mls @ 9.97 mls/hr 07/08/17 19:30 07/09/17 00:43 units/ Sodium Chloride IVPB 0.02 units/kg/hr TITR CHELLE Titration Protocol 0.1 UNITS/KG/HR Dextrose/Sodium Chloride 1,000 mls @ 300 mls/hr 07/08/17 23:30 07/09/17 06:41 D5-1/2ns+40 Meq Kcl - IV 300 mls/hr ASDIR CHELLE Administration Levothyroxine Sodium 150 mcg 07/09/17 07:00 07/09/17 06:40 Synthroid - PO 150 mcg DAILY@0700 CHELLE Administration Morphine Sulfate 4 mg 07/08/17 20:37 07/09/17 02:44 Morphine Injection - IVPUSH 4 mg Q4H PRN Administration PAIN Mupirocin 1 applic 07/08/17 22:00 07/08/17 22:16 Bactroban Ointment (For Decolonization) - NS 07/13/17 21:59 1 applic BID CHELLE Administration ASSESSMENT/PLAN: 21y/o F pmhx IDDM, hypothyroidism, hx DKA admitted 07/08/17 for dyspnea, substernal chest pain and DKA. Neuro: -Somnolent but following commands, gradually awakens to stimuli -Given 4mg morphine for pain overnight -D/c Morphine and start Tylenol prn pain -Continue to monitor Resp: Kussmaul breathing 2/2 DKA -RR on admission 26 -RR 12 with O2 sat 100% this AM on RA -Continue to monitor O2 sats Cardio: Substernal chest pain -No hx cardiac disease -Per H&P, EKG on admission revealed NSR with tachycardia -CXR unremarkable -One time troponin level <0.02 -CP most likely 2/2 musculoskeletal cause/increased work of breathing from DKA Endocrine: DKA -AG on admission 24, BG 616, 3+ serum ketones, VBG with pH 7.04, pCO2 21.5, HCO3 5.6 -AG closing 24>24>19>12 this AM -Bicarb continues to be low at 13 -BG 175 this AM -Lactic acid 1.9, down from 3.7 on admission -Continue insulin drip 0.02U/kg/hr until bicarb >18 -Cont FS Q1H; increase D5W for glucose <100 -F/u BMP and bicarb @13:00 today Hypothyroidism -Per notes pt is noncompliant with meds -TSH 86 this admission -Continue Synthroid 150mcg QD Renal: TONI -Cr on admission 1.7, most likely prerenal cause from volume depletion -Cr trending down to 1.3>1.2 -Urine Cr and urine Na pending -Urine cx pending -Nogueira draining light yellow urine; will d/c today GI: Abdominal pain -Alk phos 132 -Lipase elevated at 573 -AST/ALT within normal limits at 24/51 -Continue to monitor, look for improvement with glc control and resolution of DKA FEN: -D5-1/2NS +40mEq KCl @300ml/hr -K+ on admission 5.5, currently 4.6; continue repletion PRN -Cont NPO for now Prophylaxis: -Heparin 5000 TID -No GI prophylaxis at this time Dispo: -Continue to monitor in ICU -Critical care time 30 minutes Visit type - Emergency Visit Emergency Visit: No - New Patient This patient is new to me today: Yes Date on this admission: 07/09/17 - Critical Care Critical Care patient: Yes Total Critical Care Time (in minutes): 30 Critical Care Statement: The care of this patient involved high complexity decision making to prevent further life threatening deterioration of the patient 's condition and/or to evaluate & treat vital organ system(s) failure or risk of failure.
[2017-07-09] MEDS: ACETAMINOPHEN 325 MG TABLET (FP) PO PRN ×3 (10:36→21:37)
[2017-07-09] MEDS: MUPIROCIN 2% TOPICAL OINTMENT FOR DECOLONIZATION NS SCH ×2 (10:36→21:41)
[2017-07-09 15:55] LABS: ALBUMIN 3.2 g/dl (3.4-5.0); ALK PHOS 99 U/L (45-117); ANION GAP 9 (8-16); BILIRUBIN,TOTAL 0.4 mg/dL (0.2-1.0); CALCIUM 7.2 mg/dL (8.5-10.1); CO2 16 mmol/L (21-32); CREATININE 1.1 mg/dL (0.55-1.02); GLUCOSE,RANDOM 115 mg/dL (74-106); SGOT/AST 13 U/L (15-37); SGPT/ALT 33 U/L (12-78); TOT PROT 6.5 g/dl (6.4-8.2)
--- NOTE | 2017-07-09 16:27 | EKG ---
Test Reason : Blood Pressure : / mmHG Vent. Rate : 117 BPM Atrial Rate : 117 BPM P-R Int : 134 ms QRS Dur : 068 ms QT Int : 316 ms P-R-T Axes : 081 061 076 degrees QTc Int : 440 ms SINUS TACHYCARDIA OTHERWISE NORMAL ECG NO PREVIOUS ECGS AVAILABLE Confirmed by SHANIKA COATS MD ([id number] on 07/09/2017 4:27:31 PM Referred By: Confirmed By:SHANIKA COATS MD
--- NOTE | 2017-07-09 17:30 | PN ---
Teaching Attending Note Name of Resident: Rosa Domínguez ATTENDING PHYSICIAN STATEMENT I saw and evaluated the patient. I reviewed the resident's note and discussed the case with the resident. I agree with the resident's findings and plan as documented. SUBJECTIVE:c/o excruciating abdominal pain. has been refusing lab draws and insulin ggt was stopped as was unable to monitor sugars closely while on ggt. pt now agreeable to lab draws. states pain is similar to presentation. denies Cp , fever, chills, N/V/C/d OBJECTIVE: Last Vital Signs Temp Pulse Resp BP Pulse Ox 98.2 F 94 H 16 87/49 99 07/09/17 10:00 07/09/17 12:00 07/09/17 12:00 07/09/17 12:00 07/09/17 09:00 General moderate distress CV S1 S2 tachycardic Lungs CTA B/L Abdomen diffuse tenderness +guarding ASSESSMENT AND PLAN: 21yo F with PMH DM1 and hypothyroid presented to the ER with diffuse abdominal pain 1. DKA-explained to pt that she is very sick and requires insulin ggt. FS now 280. pt agreeable to frequent labs. will place back on insulin ggt. NPO. check bmp q4H, bgm per ICU protocol. will need to monitor closely. cont D51/2NS. monitor electrolytes 2. Metabolic acidosis- with lactic acidosis. lactic acidosis resolved. acidosis improved likely due to DKA 3. Hypothyroid- TSH very high, due to medication non-compliance. will re-start synthroid. repeat TSH in 6 weeks 4. TONI- likely dehydration. improving. avoid nephrotoxic medications 5. Hypocalcemia- Corrected Ca 7.8. will start oral supplementation once able to transition to po 6. DVT ppx- hep sq 7. cont micu monitoring The care of this patient involved high complexity decision making to prevent further life threatening deterioration of the patient's condition and/or to evaluate & treat vital organ system(s) failure or risk of failure. 40 minutes critical care time
--- NOTE | 2017-07-09 17:37 | PN ---
Physical Exam: SUBJECTIVE: Patient seen and examined at bedside. Lethargic today. Pt unable to describe her pain, however accompanied by mother at bedside. Pt's anion gap has closed, most recently 9 at 2pm this afternoon. However, pt has been non- compliant with BMP, fingersticks . She is currently back on insulin drip. Last blood sugar 230's OBJECTIVE: Vital Signs Period Temp Pulse Resp BP Sys/Kohli Pulse Ox Last 24 Hr 97.6 F-98.2 F 93-109 12-25 87-120/49-85 99 GENERAL: The patient is lethargic, in no acute distress. HEAD: Normal with no signs of trauma. EYES: PERRL, extraocular movements intact, sclera anicteric, conjunctiva clear. NECK: Trachea midline, full range of motion, supple. LUNGS: Breath sounds equal, clear to auscultation bilaterally, no wheezes, no crackles, no accessory muscle use. HEART: Regular rate and rhythm, S1, S2 without murmur, rub or gallop. ABDOMEN: epigastric tenderness, normoactive bowel sounds, no guarding, no rebound, no hepatosplenomegaly, no masses. EXTREMITIES: 2+ posterior tibial pulses, warm, well-perfused, no edema. NEUROLOGICAL: difficult to assess d/t pt's lethargy Laboratory Results - last 24 hr 07/08/17 07/08/17 07/08/17 21:10 21:10 21:19 VBG pH POC VBG pCO2 POC VBG pO2 Mixed VBG HCO3 Sodium Potassium Chloride Carbon Dioxide Anion Gap BUN Creatinine Creat Clearance w eGFR POC Glucometer 376.99802 Random Glucose Lactic Acid Calcium Total Bilirubin AST ALT Alkaline Phosphatase Total Protein Albumin Urine Creatinine Cancelled < 13.0 L 07/08/17 07/08/17 07/08/17 22:12 22:30 22:30 VBG pH POC VBG pCO2 POC VBG pO2 Mixed VBG HCO3 Sodium 140 Potassium 4.1 D Chloride 113 H D Carbon Dioxide 3 L D Anion Gap 24 H BUN 13 Creatinine 1.3 H D Creat Clearance w eGFR POC Glucometer [phone] Random Glucose 207 H D Lactic Acid 3.7 H* Calcium 7.7 L Total Bilirubin AST ALT Alkaline Phosphatase Total Protein Albumin Urine Creatinine 07/08/17 07/09/17 07/09/17 23:16 00:39 01:55 VBG pH POC VBG pCO2 POC VBG pO2 Mixed VBG HCO3 Sodium Potassium Chloride Carbon Dioxide Anion Gap BUN Creatinine Creat Clearance w eGFR POC Glucometer 161.66351 139.89761 150.04786 Random Glucose Lactic Acid Calcium Total Bilirubin AST ALT Alkaline Phosphatase Total Protein Albumin Urine Creatinine 07/09/17 07/09/17 07/09/17 02:45 02:45 02:48 VBG pH 7.22 L* D POC VBG pCO2 26.5 L D POC VBG pO2 22.9 L D Mixed VBG HCO3 10.4 L* Sodium 142 Potassium 4.6 Chloride 113 H Carbon Dioxide 10 L D Anion Gap 19 H BUN 12 Creatinine 1.3 H Creat Clearance w eGFR POC Glucometer Random Glucose 175 H Lactic Acid 2.1 H* Calcium 7.7 L Total Bilirubin AST ALT Alkaline Phosphatase Total Protein Albumin Urine Creatinine 07/09/17 07/09/17 07/09/17 03:17 04:09 05:30 VBG pH POC VBG pCO2 POC VBG pO2 Mixed VBG HCO3 Sodium Potassium Chloride Carbon Dioxide Anion Gap BUN Creatinine Creat Clearance w eGFR POC Glucometer 157.22516 158.24291 164.39395 Random Glucose Lactic Acid Calcium Total Bilirubin AST ALT Alkaline Phosphatase Total Protein Albumin Urine Creatinine 07/09/17 07/09/17 07/09/17 06:58 08:10 08:10 VBG pH POC VBG pCO2 POC VBG pO2 Mixed VBG HCO3 Sodium 139 Potassium 4.8 Chloride 114 H Carbon Dioxide 13 L D Anion Gap 12 BUN 8 D Creatinine 1.2 H Creat Clearance w eGFR POC Glucometer 151.11116 Random Glucose 152 H Lactic Acid 1.9 Calcium 7.2 L Total Bilirubin AST ALT Alkaline Phosphatase Total Protein Albumin Urine Creatinine 07/09/17 07/09/17 07/09/17 08:51 10:25 11:44 VBG pH POC VBG pCO2 POC VBG pO2 Mixed VBG HCO3 Sodium Potassium Chloride Carbon Dioxide Anion Gap BUN Creatinine Creat Clearance w eGFR POC Glucometer 154.03451 145.08857 148.97962 Random Glucose Lactic Acid Calcium Total Bilirubin AST ALT Alkaline Phosphatase Total Protein Albumin Urine Creatinine 07/09/17 07/09/17 07/09/17 13:13 14:30 15:08 VBG pH POC VBG pCO2 POC VBG pO2 Mixed VBG HCO3 Sodium 139 Potassium 4.6 Chloride 114 H Carbon Dioxide 16 L D Anion Gap 9 BUN 6 L D Creatinine 1.1 H Creat Clearance w eGFR > 60 POC Glucometer 135.74814 124.64517 Random Glucose 115 H D Lactic Acid Calcium 7.2 L Total Bilirubin 0.4 D AST 13 L D ALT 33 D Alkaline Phosphatase 99 D Total Protein 6.5 D Albumin 3.2 L D Urine Creatinine Active Medications Generic Name Dose Route Start Last Admin Trade Name Freq PRN Reason Stop Dose Admin Acetaminophen 650 mg 07/09/17 09:49 07/09/17 10:36 Tylenol - PO 650 mg Q4H PRN Administration FEVER OR PAIN Chlorhexidine Gluconate 1 applic 07/08/17 22:00 07/08/17 22:16 Hibiclens For Decolonization - TP 1 applic HS CHELLE Administration Heparin Sodium (Porcine) 5,000 unit 07/09/17 06:00 07/09/17 14:41 Heparin - SQ Not Given TID CHELLE Insulin Human Regular 100 100 mls @ 9.97 mls/hr 07/08/17 19:30 07/09/17 00:43 units/ Sodium Chloride IVPB 0.02 units/kg/hr TITR CHELLE Titration Protocol 0.1 UNITS/KG/HR Dextrose/Sodium Chloride 1,000 mls @ 300 mls/hr 07/08/17 23:30 07/09/17 06:41 D5-1/2ns+40 Meq Kcl - IV 300 mls/hr ASDIR CHELLE Administration Levothyroxine Sodium 150 mcg 07/09/17 07:00 07/09/17 06:40 Synthroid - PO 150 mcg DAILY@0700 CHELLE Administration Morphine Sulfate 4 mg 07/08/17 20:37 07/09/17 02:44 Morphine Injection - IVPUSH 4 mg Q4H PRN Administration PAIN Mupirocin 1 applic 07/08/17 22:00 07/09/17 10:36 Bactroban Ointment (For Decolonization) - NS 07/13/17 21:59 1 applic BID CHELLE Administration ASSESSMENT/PLAN: This is a 21 y/o F with PMH IDDM, hypothyroidism, and history of DKA admission 2 -3 years ago, who presented to ED with SOB, mid-sternal chest discomfort and centrally located abdominal pain. Pt admitted for DKA secondary to non- compliance. #DKA secondary to non-compliance -Anion gap closed- currently 9 -Pt continued on insulin drip -Has been refusing blood draws, BMP, fingersticks -Last fingerstick 230's -K+ level 4.6 -on D5W 1/2 NS + 40 mEq KCl -continue to monitor fingersticks every 2 hrs, last fingerstick 230's #TONI-resolved -Most likely d/t DKA #Lactic acidosis secondary to DKA #Hypothyroidism -Continue synthroid 150 mcg PO daily -F/u TSH in 6 weeks F/E/N D5w 1/2 NS NPO Monitor electrolytes closely Visit type - Emergency Visit Emergency Visit: No - New Patient This patient is new to me today: Yes Date on this admission: 07/09/17 - Critical Care Critical Care patient: Yes Total Critical Care Time (in minutes): 32 Critical Care Statement: The care of this patient involved high complexity decision making to prevent further life threatening deterioration of the patient 's condition and/or to evaluate & treat vital organ system(s) failure or risk of failure.
[2017-07-09] MEDS: INSULIN REGULAR 100 UNITS in SODIUM CHLORIDE 99 ML IVPB SCH (19:30)
[2017-07-09] MEDS ORDERED: PT OWN MED DRAWER 7, Y5N ONE (21:24)
[2017-07-09] MEDS: CHLORHEXIDINE GLUCONATE 4% CLEANSER FOR DECOLONIZATION TP SCH (21:43)
[2017-07-09 22:05] LABS: ANION GAP 12 (8-16); CALCIUM 7.1 mg/dL (8.5-10.1); CO2 12 mmol/L (21-32); CREATININE 1.1 mg/dL (0.55-1.02); GLUCOSE,RANDOM 180 mg/dL (74-106)
[2017-07-09] MEDS ORDERED: ONDANSETRON 4 MG/2 ML VIAL ONE (23:23)
[2017-07-10] MEDS ORDERED: HEMOQUE CONTROL SOLUTION ONE (01:31)
[2017-07-10] MEDS: ACETAMINOPHEN 325 MG TABLET (FP) PO PRN (02:17)
[2017-07-10] MEDS: ONDANSETRON 4 MG/2 ML VIAL IVPB PRN ×2 (04:00→08:55)
[2017-07-10] MEDS ORDERED: ONDANSETRON 4 MG/2 ML VIAL ONE (04:06)
[2017-07-10] MEDS: morphine CARPU-JECT 4 MG/1 ML DISP.SYRIN IVPUSH PRN (04:12)
[2017-07-10] MEDS: HEPARIN NA (PORCINE) 5,000 UNITS/ML 1ML VIAL SQ SCH ×4 (06:07→22:04)
[2017-07-10] MEDS: LEVOTHYROXINE NA 75 MCG TABLET (FP) PO SCH (06:08)
[2017-07-10 06:44] LABS: MCH 33.5 pg (25.7-33.7); MEAN CELL VOLUME 98.6 fl (80-96); MEAN PLT VOLUME 8.5 fl (7.5-11.1); PLATELET COUNT 226 K/MM3 (134-434); RDW 13.5 % (11.6-15.6); WHITE BLOOD COUNT 4.9 K/mm3 (4.0-10.0)
[2017-07-10 07:04] LABS: ANION GAP 10 (8-16); CALCIUM 7.2 mg/dL (8.5-10.1); CO2 18 mmol/L (21-32); CREATININE 0.9 mg/dL (0.55-1.02); GLUCOSE,RANDOM 103 mg/dL (74-106); MAGNESIUM 1.9 mg/dL (1.8-2.4)
[2017-07-10 07:27] LABS: PHOSPHOROUS 1.1 mg/dL (2.5-4.9)
[2017-07-10] MEDS ORDERED: POTASSIUM PHOSPHATE 30 MM in DEXTROSE 5%-WATER - 250 ML IVPB ONE (07:31)
[2017-07-10] MEDS ORDERED: INSULIN REGULAR 100 UNITS in SODIUM CHLORIDE 99 ML IVPB SCH (07:43)
[2017-07-10] MEDS ORDERED: INSULIN DETEMIR 100 UNITS/ML MDV SQ SCH ×2 (09:00→22:00)
[2017-07-10] MEDS ORDERED: INSULIN DETEMIR 100 UNITS/ML MDV SQ ONE (09:15)
[2017-07-10] MEDS ORDERED: NAPH,MB-DB/K PH,MBDB POWDER PACKET PO ONE ×2 (09:15→12:15)
[2017-07-10] MEDS ORDERED: CALCIUM CARBONATE 650 MG TABLET PO SCH ×2 (10:45→22:00)
[2017-07-10] MEDS: INSULIN SLIDING SCALE (NOVOLOG) 1 VIAL SQ SCH ×4 (11:00→22:02)
[2017-07-10] MEDS: MUPIROCIN 2% TOPICAL OINTMENT FOR DECOLONIZATION NS SCH (11:00)
--- NOTE | 2017-07-10 11:33 | PN ---
Teaching Attending Note Name of Resident: Sergio Alexandre ATTENDING PHYSICIAN STATEMENT I saw and evaluated the patient. I reviewed the resident's note and discussed the case with the resident. I agree with the resident's findings and plan as documented. SUBJECTIVE: Patient seen and examined in the ICU. Remains on low dose IV Insulin. Reports MCDONALD. No CP or SOB. Noted improving AG and bicarb. Intake & Output 07/07/17 07/08/17 07/09/17 07/10/17 23:59 23:59 23:59 23:59 Intake Total 2918 Output Total 800 1400 1200 Balance -800 1518 -1200 Weight 184 lb 5 oz 190 lb Last Vital Signs Temp Pulse Resp BP Pulse Ox 97.5 F L 85 18 112/89 100 07/10/17 10:00 07/10/17 10:00 07/10/17 10:00 07/10/17 10:00 07/09/17 20:42 Active Medications Acetaminophen (Tylenol -) 650 mg PO Q4H PRN PRN Reason: FEVER OR PAIN Last Admin: 07/10/17 02:17 Dose: 650 mg Calcium Carbonate (Calcium Carbonate -) 650 mg PO BID [facility] Stop: 07/10/17 22:01 Chlorhexidine Gluconate (Hibiclens For Decolonization -) 1 applic TP HS [facility] Last Admin: 07/09/17 21:43 Dose: 1 applic Heparin Sodium (Porcine) (Heparin -) 5,000 unit SQ TID [facility] Last Admin: 07/10/17 06:07 Dose: Not Given Dextrose/Sodium Chloride (D5-1/2ns+40 Meq Kcl -) 1,000 mls @ 300 mls/hr IV ASDIR [facility] Last Admin: 07/09/17 23:30 Dose: 300 mls/hr Potassium Phosphate 30 mm/ (Dextrose) 260 mls @ 62.5 mls/hr IVPB ONCE ONE Stop: 07/10/17 11:40 Last Admin: 07/10/17 09:20 Dose: 62.5 mls/hr Insulin Human Regular 100 (units/ Sodium Chloride) 100 mls @ 1 mls/hr IVPB TITR CHELLE; 1 UNITS/HR PRN Reason: Protocol Insulin Aspart (Novolog Vial Sliding Scale -) 1 vial SQ ACHS [facility] PRN Reason: Protocol Insulin Detemir (Levemir Vial) 50 units SQ AM C[facility]LE Levothyroxine Sodium (Synthroid -) 150 mcg PO DAILY@0700 [facility] Last Admin: 07/10/17 06:08 Dose: Not Given Morphine Sulfate (Morphine Injection -) 4 mg IVPUSH Q4H PRN PRN Reason: PAIN Last Admin: 07/10/17 04:12 Dose: 4 mg Mupirocin (Bactroban Ointment (For Decolonization) -) 1 applic NS BID [facility] Stop: 07/13/17 21:59 Last Admin: 07/09/17 21:41 Dose: 1 applic Ondansetron HCl (Zofran Injection) 4 mg IVPB Q4H PRN PRN Reason: NAUSEA AND/OR VOMITING Last Admin: 07/10/17 08:55 Dose: 4 mg Constitutional: Yes: Sleepy but arousable Eyes: Yes: Conjunctiva Clear, EOM Intact, PERRL HENT: Yes: dry mucous membranes Neck: Yes: Supple, Trachea Midline Cardiovascular: Yes: S1S2. No: Murmur Respiratory: Yes: Clear. No: Accessory Muscle Use, On Nasal O2, Rhonchi, Wheezes Gastrointestinal: Yes: Soft, Tenderness. No: Hepatomegaly, Splenomegaly, Tenderness, Rebound, Vomiting Edema: No Neurological: Yes: Sleepy Psychiatric: Yes: Sleepy Laboratory Results - last 24 hr 07/09/17 07/09/17 07/09/17 06:58 11:44 13:13 WBC RBC Hgb Hct MCV MCH MCHC RDW Plt Count MPV Sodium Potassium Chloride Carbon Dioxide Anion Gap BUN Creatinine Creat Clearance w eGFR POC Glucometer 151.37967 148.65404 135.03868 Random Glucose Calcium Phosphorus Magnesium Total Bilirubin AST ALT Alkaline Phosphatase Total Protein Albumin 07/09/17 07/09/17 07/09/17 14:30 15:08 17:24 WBC RBC Hgb Hct MCV MCH MCHC RDW Plt Count MPV Sodium 139 Potassium 4.6 Chloride 114 H Carbon Dioxide 16 L D Anion Gap 9 BUN 6 L D Creatinine 1.1 H Creat Clearance w eGFR > 60 POC Glucometer 124.20127 279.87294 Random Glucose 115 H D Calcium 7.2 L Phosphorus Magnesium Total Bilirubin 0.4 D AST 13 L D ALT 33 D Alkaline Phosphatase 99 D Total Protein 6.5 D Albumin 3.2 L D 07/09/17 07/09/17 07/09/17 18:33 19:51 20:30 WBC RBC Hgb Hct MCV MCH MCHC RDW Plt Count MPV Sodium 138 Potassium 4.8 Chloride 114 H Carbon Dioxide 12 L D Anion Gap 12 BUN 5 L Creatinine 1.1 H Creat Clearance w eGFR POC Glucometer 215.07204 139.32374 Random Glucose 180 H D Calcium 7.1 L Phosphorus Magnesium Total Bilirubin AST ALT Alkaline Phosphatase Total Protein Albumin 07/09/17 07/09/17 07/10/17 21:39 23:21 00:42 WBC RBC Hgb Hct MCV MCH MCHC RDW Plt Count MPV Sodium Potassium Chloride Carbon Dioxide Anion Gap BUN Creatinine Creat Clearance w eGFR POC Glucometer 313.89087 231.12618 154.43455 Random Glucose Calcium Phosphorus Magnesium Total Bilirubin AST ALT Alkaline Phosphatase Total Protein Albumin 07/10/17 07/10/17 07/10/17 01:41 02:47 03:31 WBC RBC Hgb Hct MCV MCH MCHC RDW Plt Count MPV Sodium Potassium Chloride Carbon Dioxide Anion Gap BUN Creatinine Creat Clearance w eGFR POC Glucometer 139.93334 113.64962 120.97656 Random Glucose Calcium Phosphorus Magnesium Total Bilirubin AST ALT Alkaline Phosphatase Total Protein Albumin 07/10/17 07/10/17 07/10/17 05:00 05:15 05:15 WBC 4.9 D RBC 3.32 L Hgb 11.1 D Hct 32.7 D MCV 98.6 H MCH 33.5 MCHC 34.0 RDW 13.5 Plt Count 226 D MPV 8.5 Sodium 139 Potassium 4.2 Chloride 111 H Carbon Dioxide 18 L D Anion Gap 10 BUN 4 L Creatinine 0.9 Creat Clearance w eGFR POC Glucometer 85.46341 Random Glucose 103 D Calcium 7.2 L Phosphorus 1.1 L* Magnesium 1.9 D Total Bilirubin AST ALT Alkaline Phosphatase Total Protein Albumin 3.0 L 07/10/17 07/10/17 07/10/17 06:10 07:15 08:01 WBC RBC Hgb Hct MCV MCH MCHC RDW Plt Count MPV Sodium Potassium Chloride Carbon Dioxide Anion Gap BUN Creatinine Creat Clearance w eGFR POC Glucometer 124.71638 167.92881 214.17183 Random Glucose Calcium Phosphorus Magnesium Total Bilirubin AST ALT Alkaline Phosphatase Total Protein Albumin 07/10/17 07/10/17 07/10/17 09:07 10:05 11:05 WBC RBC Hgb Hct MCV MCH MCHC RDW Plt Count MPV Sodium Potassium Chloride Carbon Dioxide Anion Gap BUN Creatinine Creat Clearance w eGFR POC Glucometer 213.32018 172.48803 144.67735 Random Glucose Calcium Phosphorus Magnesium Total Bilirubin AST ALT Alkaline Phosphatase Total Protein Albumin IMP: DKA TONI Hypothyroidism Noncompliance issues. PLAN: Taper and D/C IV Insulin drip SQ coverage O2 as needed VTE prophylaxis PO as tolerated Floor once IV insulin drip Dr Morse Critical Care Total Critical Care Time (in minutes): 35 Critical Care Statement: The care of this patient involved high complexity decision making to prevent further life threatening deterioration of the patient 's condition and/or to evaluate & treat vital organ system(s) failure or risk of failure.
[2017-07-10] MEDS ORDERED: PT OWN MED DRAWER 7, Y5N ONE (12:01)
--- NOTE | 2017-07-10 12:01 | PN ---
Progress Note, Physician History of Present Illness: Patient seen and examined by bedside. Overnight patient had nausea/vomiting and headache. Night team gave morphine for headache and ondensetron for nausea. Pharmacy was called to determine patient's full medication list - patient is on 50U Lantus at home. This morning patient still complains of headache, which has improved since last night and more nausea. Admits to mild abdominal pain and slight right calf tenderness. - Current Medication List Current Medications: Active Medications Acetaminophen (Tylenol -) 650 mg PO Q4H PRN PRN Reason: FEVER OR PAIN Last Admin: 07/10/17 02:17 Dose: 650 mg Calcium Carbonate (Calcium Carbonate -) 650 mg PO BID [facility] Stop: 07/10/17 22:01 Chlorhexidine Gluconate (Hibiclens For Decolonization -) 1 applic TP HS [facility] Last Admin: 07/09/17 21:43 Dose: 1 applic Heparin Sodium (Porcine) (Heparin -) 5,000 unit SQ TID [facility] Last Admin: 07/10/17 06:07 Dose: Not Given Dextrose/Sodium Chloride (D5-1/2ns+40 Meq Kcl -) 1,000 mls @ 300 mls/hr IV ASDIR [facility] Last Admin: 07/09/17 23:30 Dose: 300 mls/hr Insulin Human Regular 100 (units/ Sodium Chloride) 100 mls @ 1 mls/hr IVPB TITR CHELLE; 1 UNITS/HR PRN Reason: Protocol Insulin Aspart (Novolog Vial Sliding Scale -) 1 vial SQ ACHS [facility] PRN Reason: Protocol Insulin Detemir (Levemir Vial) 50 units SQ AM [facility] Levothyroxine Sodium (Synthroid -) 150 mcg PO DAILY@0700 [facility] Last Admin: 07/10/17 06:08 Dose: Not Given Morphine Sulfate (Morphine Injection -) 4 mg IVPUSH Q4H PRN PRN Reason: PAIN Last Admin: 07/10/17 04:12 Dose: 4 mg Mupirocin (Bactroban Ointment (For Decolonization) -) 1 applic NS BID [facility] Stop: 07/13/17 21:59 Last Admin: 07/09/17 21:41 Dose: 1 applic Ondansetron HCl (Zofran Injection) 4 mg IVPB Q4H PRN PRN Reason: NAUSEA AND/OR VOMITING Last Admin: 07/10/17 08:55 Dose: 4 mg - Objective Vital Signs: Vital Signs Temperature 97.5 F L 07/10/17 10:00 Pulse Rate 85 07/10/17 10:00 Respiratory Rate 18 07/10/17 10:00 Blood Pressure 112/89 07/10/17 10:00 O2 Sat by Pulse Oximetry (%) 100 07/09/17 20:42 Constitutional: Yes: Well Nourished, No Distress Eyes: Yes: Conjunctiva Clear, EOM Intact HENT: Yes: Atraumatic, Normocephalic Neck: Yes: Supple, Trachea Midline Cardiovascular: Yes: Regular Rate and Rhythm. No: Gallop, Murmur, Rub Respiratory: Yes: Regular, CTA Bilaterally. No: Accessory Muscle Use, Rales, Rhonchi, SOB, Stridor, Wheezes Gastrointestinal: Yes: Normal Bowel Sounds, Soft, Tenderness, Epigastrium (mild tenderness), Vomiting Extremities: Yes: Calf Tenderness (Mild R calf tenderness) Edema: No Peripheral Pulses WNL: Yes Integumentary: Yes: Other (surgical scar noted on L lower extremity) Neurological: Yes: Alert, Oriented Psychiatric: Yes: Alert, Oriented Labs: CBC, BMP 07/10/17 05:15 07/10/17 05:15 Problem List - Problems (1) DKA (diabetic ketoacidoses) Code(s): E13.10 - OTH DIABETES MELLITUS WITH KETOACIDOSIS WITHOUT COMA Qualifiers: Diabetes mellitus type: other specified (including SIDRA) Diabetes mellitus complication detail: without coma Qualified Code(s): E13.10 - Other specified diabetes mellitus with ketoacidosis without coma (2) Hypothyroidism Code(s): E03.9 - HYPOTHYROIDISM, UNSPECIFIED Qualifiers: Hypothyroidism type: unspecified Qualified Code(s): E03.9 - Hypothyroidism, unspecified Assessment/Plan 21y/o F pmhx IDDM, hypothyroidism, hx DKA admitted 07/08/17 for dyspnea, substernal chest pain and DKA. Neuro: patient complained of headache overnight, otherwise neurologically intact -Alert and oriented, very tired and not easily woken -Given morphine for headache -D/c Morphine and start Tylenol prn pain -Continue to monitor Resp: breathing has improved, no longer having Kussmaul respirations -RR 13, normal O2 sat -Continue to monitor O2 sats Cardio: no longer having chest pain -No hx cardiac disease -Per H&P, EKG on admission revealed NSR with tachycardia -CXR unremarkable -One time troponin level <0.02 -CP most likely 2/2 musculoskeletal cause/increased work of breathing from DKA Endocrine: DKA -anion gap 10 -Bicarb 18 -BG 182 most recent - 3 hours after breakfast -Lactic acid 1.9, down from 3.7 on admission -switch insulin drip to 1U/hr for 2 hours then DC -start insulin levemir 50U in the am QD and sliding scale insulin -Cont FS Q1H; increase D5W for glucose <100 Hypothyroidism -Per notes pt is noncompliant with meds -TSH 86 this admission -Continue Synthroid 150mcg QD -Suggest endocrine consult for outpatient care Renal: TONI has resolved, likey due to prerenal causes -Cr 0.9 -correa was d/c'd, not yet urinated since pulled correa GI: epigastric abdominal pain resolving -Continue to monitor, look for improvement with glc control and resolution of DKA FEN: -switch D5-1/2NS +40mEq KCl to a rate of 150ml/hr -Phos was 1.1 today, replete with Kphos -start diabetic diet Prophylaxis: -Heparin 5000 TID -No GI prophylaxis at this time Dispo: -stable for transfer to [facility]-surg -Critical care time 30 minutes
[2017-07-10 12:46] LABS: ANION GAP 14 (8-16); CALCIUM 7.3 mg/dL (8.5-10.1); CO2 16 mmol/L (21-32); GLUCOSE,RANDOM 198 mg/dL (74-106)
[2017-07-10 13:10] LABS: MAGNESIUM 1.9 mg/dL (1.8-2.4)
--- NOTE | 2017-07-10 14:54 | EKG ---
Test Reason : Blood Pressure : / mmHG Vent. Rate : 097 BPM Atrial Rate : 097 BPM P-R Int : 134 ms QRS Dur : 062 ms QT Int : 372 ms P-R-T Axes : 061 039 054 degrees QTc Int : 472 ms NORMAL SINUS RHYTHM SEPTAL INFARCT , AGE UNDETERMINED ABNORMAL ECG WHEN COMPARED WITH ECG OF 08-JUL-2017 17:48, NO SIGNIFICANT CHANGE WAS FOUND Confirmed by DENNIS MERCADO MD ([id number]) on 07/10/2017 2:53:45 PM Referred By: Confirmed By:DENNIS MERCADO MD
[2017-07-10 15:15] LABS: ANION GAP 13 (8-16); CALCIUM 7.2 mg/dL (8.5-10.1); CO2 15 mmol/L (21-32); CREATININE 0.9 mg/dL (0.55-1.02); GLUCOSE,RANDOM 241 mg/dL (74-106)
--- NOTE | 2017-07-10 16:17 | CON.PSY ---
Psychiatry Consult Chief Complaint: Patient denies feeling or being depressed> She has seen a psych in the past for unknown reasons, did not take any psych merds. 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 appears lethargic at this time. Symptoms: reports: Decreased Motivation, Oppositionalism - Previous Psychiatric Treatment Outpatient: More than 6 mos ago Inpatient: None - Previous Substance Abuse Treatment Outpatient: None Inpatient: None - Current Medications Current Medications: Active Medications Acetaminophen (Tylenol -) 650 mg PO Q4H PRN PRN Reason: FEVER OR PAIN Last Admin: 07/10/17 02:17 Dose: 650 mg Calcium Carbonate (Calcium Carbonate -) 650 mg PO BID [facility] Stop: 07/10/17 22:01 Last Admin: 07/10/17 12:40 Dose: 650 mg Chlorhexidine Gluconate (Hibiclens For Decolonization -) 1 applic TP HS [facility] Last Admin: 07/09/17 21:43 Dose: 1 applic Heparin Sodium (Porcine) (Heparin -) 5,000 unit SQ TID [facility] Last Admin: 07/10/17 06:07 Dose: Not Given Dextrose/Sodium Chloride (D5-1/2ns+40 Meq Kcl -) 1,000 mls @ 300 mls/hr IV ASDIR [facility] Last Admin: 07/09/17 23:30 Dose: 300 mls/hr Insulin Human Regular 100 (units/ Sodium Chloride) 100 mls @ 1 mls/hr IVPB TITR CHELLE; 1 UNITS/HR PRN Reason: Protocol Insulin Aspart (Novolog Vial Sliding Scale -) 1 vial SQ ACHS [facility] PRN Reason: Protocol Last Admin: 07/10/17 11:00 Dose: Not Given Insulin Detemir (Levemir Vial) 50 units SQ AM [facility] Levothyroxine Sodium (Synthroid -) 150 mcg PO DAILY@0700 [facility] Last Admin: 07/10/17 06:08 Dose: Not Given Morphine Sulfate (Morphine Injection -) 4 mg IVPUSH Q4H PRN PRN Reason: PAIN Last Admin: 07/10/17 04:12 Dose: 4 mg Mupirocin (Bactroban Ointment (For Decolonization) -) 1 applic NS BID [facility] Stop: 07/13/17 21:59 Last Admin: 07/10/17 11:00 Dose: 1 applic Ondansetron HCl (Zofran Injection) 4 mg IVPB Q4H PRN PRN Reason: NAUSEA AND/OR VOMITING Last Admin: 07/10/17 08:55 Dose: 4 mg - Allergies Allergies: Allergies Allergy/AdvReac Type Severity Reaction Status Date / Time Corticosteroids Allergy Verified 07/08/17 18:13 (Glucocorticoids) steroids Allergy Uncoded 07/08/17 17:33 - Current Living Status Usual Living Arrangement: With Parent - Current Mental Status Evaluation Appearance: Disheveled Attitude: Guarded - Affect Affect: Constrictive Appropriateness: Appropriate to Content - Mood Mood: Other - Speech/Language Expressive: Delayed - Psychomotor Activity Psychomotor Activity: Slowed - Thought Process Thought Process: Circumstantial - Thought Content Hallucinations: Absent Delusions: Absent - Self Perception Self Perception: No Impairment - Cognition Attention: Alert Orientation: Time Memory, Immediate Recall: Intact Memory, Short Term: 2/3 Memory, Remote with Promptin/3 - Concentration Serial Sevens Intact: No Simple Calculations Intact: No - Abstraction Proverb Interpretation: Impaired Judgement: Moderately Impaired - Insight Insight: Impaired - Impulse Control Impulse Control: Minimally Impaired - Suicidal Ideation Suicidal Ideation: No - Homicidal Ideation Homicidal Ideation: No Assessment/Plan 1) do not recemmend any Psych meds at this time. 2) Obtain Psych med history from mother. 3) Possible reeval when patient is more stable and alert.
--- NOTE | 2017-07-10 16:45 | PN ---
Teaching Attending Note Name of Resident: Rosa Domínguez ATTENDING PHYSICIAN STATEMENT I saw and evaluated the patient. I reviewed the resident's note and discussed the case with the resident. I agree with the resident's findings and plan as documented. SUBJECTIVE:c/o MCDONALD frontal. improved with tylenol. no appetite but was able to take a few bites of breakfast. awaiting for mother to bring in additional food. c/o LLE pain at rest. has not gotten up to walk on it. pain started suddenly. no loss in sensation. denies CP, SOB, fever, chills, N/V/C/D OBJECTIVE: Last Vital Signs Temp Pulse Resp BP Pulse Ox 98.0 F 99 H 18 108/61 100 07/10/17 14:00 07/10/17 14:00 07/10/17 14:00 07/10/17 14:00 07/10/17 09:00 General resting comfortable CV S1 S2 RRR no murmur/rubs/gallops Lungs CTA B/L Abdomen soft NT/ND no guarding Extremities RLE tenderness mostly to anterior hinds. no calf tenderness. leg is warm pulse intact. full ROM of the foot, sensation grossly intact ASSESSMENT AND PLAN: 21yo F with PMH DM1 and hypothyroid presented to the ER with diffuse abdominal pain 1. DKA-AG has closed by bicarb remains low. was given levemir 50 units and ate. will need to monitor BMP Q4H closely. check VBG to evaluate if acidosis is resolving. cont ISS, BGM. counseled on need for medication compliance. nutrition assessment. 2. Metabolic acidosis- with lactic acidosis. lactic acidosis resolved. acidosis improved likely due to DKA 3. RLE pain- seems muscular. doppler ordered by ICU team 4. Hypothyroid- TSH very high, due to medication non-compliance. on home synthroid. repeat TSH in 6 weeks 5. TONI- likely dehydration. resolved avoid nephrotoxic medications 6. Hypocalcemia- Corrected Ca 7.8. on oral supplementation 7. DVT ppx- hep sq 8. cont micu monitoring The care of this patient involved high complexity decision making to prevent further life threatening deterioration of the patient's condition and/or to evaluate & treat vital organ system(s) failure or risk of failure. 45 minutes critical care time
[2017-07-10] MEDS ORDERED: ACETAMINOPHEN 325 MG TABLET (FP) PO PRN (17:12)
[2017-07-10] MEDS ORDERED: ONDANSETRON 4 MG/2 ML VIAL IVPB PRN (17:12)
[2017-07-10 18:04] LABS: URINE APPEARANCE CLEAR; URINE BILIRUBIN NEGATIVE (NEGATIVE); URINE BLOOD 1+ (NEGATIVE); URINE COLOR LT. YELLOW; URINE GLUCOSE (UA) 3+ (NEGATIVE); URINE KETONE 1+ (NEGATIVE); URINE LEUK ESTERASE NEGATIVE (NEGATIVE); URINE NITRITE NEGATIVE (NEGATIVE); URINE PROTEIN TRACE (NEGATIVE); URINE UROBILINOGEN 0.2 mg/dL (0.2-1.0)
--- NOTE | 2017-07-10 18:33 | PN ---
Physical Exam: SUBJECTIVE: Patient seen and examined at bedside. Pt complaining of pain in R lower extremity- duplex done, negative for DVT. Pt still states that she is having epigastric pain with mild nausea. OBJECTIVE: Vital Signs Period Temp Pulse Resp BP Sys/Kohli Pulse Ox Last 24 Hr 97.5 F-98.6 F 67-99 10-20 95-116/52-89 100-100 GENERAL: The patient is awake, alert, and fully oriented, in no acute distress. HEAD: Normal with no signs of trauma. EYES: PERRL, extraocular movements intact, sclera anicteric, conjunctiva clear. No ptosis. NECK: Trachea midline, full range of motion, supple. LUNGS: Breath sounds equal, clear to auscultation bilaterally, no wheezes, no crackles, no accessory muscle use. HEART: Regular rate and rhythm, S1, S2 without murmur, rub or gallop. ABDOMEN: mild tenderness elicited in mid epigastric area, normoactive bowel sounds, no guarding, no rebound, no hepatosplenomegaly, no masses. EXTREMITIES: 2+ posterior tibial pulses, warm, well-perfused, no edema. Mild tenderness in R lower extremity, near hinds NEUROLOGICAL: Cranial nerves II through XII grossly intact. Laboratory Results - last 24 hr 07/09/17 07/09/17 07/09/17 18:33 19:51 20:30 WBC RBC Hgb Hct MCV MCH MCHC RDW Plt Count MPV Sodium 138 Potassium 4.8 Chloride 114 H Carbon Dioxide 12 L D Anion Gap 12 BUN 5 L Creatinine 1.1 H POC Glucometer [phone] Random Glucose 180 H D Calcium 7.1 L Phosphorus Magnesium Albumin Urine Color Urine Appearance Urine pH Urine Protein Urine Glucose (UA) Urine Ketones Urine Blood Urine Nitrite Urine Bilirubin Urine Urobilinogen Ur Leukocyte Esterase 07/09/17 07/09/17 07/10/17 21:39 23:21 00:42 WBC RBC Hgb Hct MCV MCH MCHC RDW Plt Count MPV Sodium Potassium Chloride Carbon Dioxide Anion Gap BUN Creatinine POC Glucometer [phone] [phone] Random Glucose Calcium Phosphorus Magnesium Albumin Urine Color Urine Appearance Urine pH Urine Protein Urine Glucose (UA) Urine Ketones Urine Blood Urine Nitrite Urine Bilirubin Urine Urobilinogen Ur Leukocyte Esterase 07/10/17 07/10/17 07/10/17 01:41 02:47 03:31 WBC RBC Hgb Hct MCV MCH MCHC RDW Plt Count MPV Sodium Potassium Chloride Carbon Dioxide Anion Gap BUN Creatinine POC Glucometer 139.44432 113.79847 [phone] Random Glucose Calcium Phosphorus Magnesium Albumin Urine Color Urine Appearance Urine pH Urine Protein Urine Glucose (UA) Urine Ketones Urine Blood Urine Nitrite Urine Bilirubin Urine Urobilinogen Ur Leukocyte Esterase 07/10/17 07/10/17 07/10/17 05:00 05:15 05:15 WBC 4.9 D RBC 3.32 L Hgb 11.1 D Hct 32.7 D MCV 98.6 H MCH 33.5 MCHC 34.0 RDW 13.5 Plt Count 226 D MPV 8.5 Sodium 139 Potassium 4.2 Chloride 111 H Carbon Dioxide 18 L D Anion Gap 10 BUN 4 L Creatinine 0.9 POC Glucometer [phone] Random Glucose 103 D Calcium 7.2 L Phosphorus 1.1 L* Magnesium 1.9 D Albumin 3.0 L Urine Color Urine Appearance Urine pH Urine Protein Urine Glucose (UA) Urine Ketones Urine Blood Urine Nitrite Urine Bilirubin Urine Urobilinogen Ur Leukocyte Esterase 07/10/17 07/10/17 07/10/17 06:10 07:15 08:01 WBC RBC Hgb Hct MCV MCH MCHC RDW Plt Count MPV Sodium Potassium Chloride Carbon Dioxide Anion Gap BUN Creatinine POC Glucometer 124.84164 167.02420 [phone] Random Glucose Calcium Phosphorus Magnesium Albumin Urine Color Urine Appearance Urine pH Urine Protein Urine Glucose (UA) Urine Ketones Urine Blood Urine Nitrite Urine Bilirubin Urine Urobilinogen Ur Leukocyte Esterase 07/10/17 07/10/17 07/10/17 09:07 10:05 11:05 WBC RBC Hgb Hct MCV MCH MCHC RDW Plt Count MPV Sodium Potassium Chloride Carbon Dioxide Anion Gap BUN Creatinine POC Glucometer 213.72635 172.72367 144.26499 Random Glucose Calcium Phosphorus Magnesium Albumin Urine Color Urine Appearance Urine pH Urine Protein Urine Glucose (UA) Urine Ketones Urine Blood Urine Nitrite Urine Bilirubin Urine Urobilinogen Ur Leukocyte Esterase 07/10/17 07/10/17 07/10/17 12:00 12:00 12:18 WBC RBC Hgb Hct MCV MCH MCHC RDW Plt Count MPV Sodium 135 L Potassium 6.5 H* D Chloride 105 Carbon Dioxide 16 L Anion Gap 14 BUN 4 L Creatinine 1.0 POC Glucometer 182.19891 Random Glucose 198 H D Calcium 7.3 L Phosphorus Cancelled Magnesium 1.9 Albumin Urine Color Urine Appearance Urine pH Urine Protein Urine Glucose (UA) Urine Ketones Urine Blood Urine Nitrite Urine Bilirubin Urine Urobilinogen Ur Leukocyte Esterase 07/10/17 07/10/17 07/10/17 14:30 16:24 17:00 WBC RBC Hgb Hct MCV MCH MCHC RDW Plt Count MPV Sodium 136 Potassium 4.2 D Chloride 108 H Carbon Dioxide 15 L Anion Gap 13 BUN 3 L D Creatinine 0.9 POC Glucometer [phone] Random Glucose 241 H D Calcium 7.2 L Phosphorus Magnesium Albumin Urine Color Lt. yellow Urine Appearance Clear Urine pH 6.0 Urine Protein Trace H Urine Glucose (UA) 3+ H Urine Ketones 1+ H Urine Blood 1+ H Urine Nitrite Negative Urine Bilirubin Negative Urine Urobilinogen 0.2 Ur Leukocyte Esterase Negative Active Medications Generic Name Dose Route Start Last Admin Trade Name Freq PRN Reason Stop Dose Admin Acetaminophen 650 mg 07/10/17 17:12 Tylenol - PO Q4H PRN FEVER OR PAIN Calcium Carbonate 650 mg 07/10/17 22:00 Calcium Carbonate - PO 07/10/17 22:01 BID [facility] Heparin Sodium (Porcine) 5,000 unit 07/10/17 22:00 Heparin - SQ TID [facility] Insulin Aspart 1 vial 07/10/17 22:00 07/10/17 17:27 Novolog Vial Sliding Scale - SQ 6 units ACHS [facility] Administration Protocol Insulin Detemir 50 units 07/11/17 07:00 Levemir Vial SQ AM [facility] Levothyroxine Sodium 150 mcg 07/11/17 07:00 Synthroid - PO DAILY@0700 [facility] Ondansetron HCl 4 mg 07/10/17 17:12 Zofran Injection IVPB Q4H PRN NAUSEA AND/OR VOMITING ASSESSMENT/PLAN: This is a 21 y/o F with PMH IDDM, hypothyroidism, and history of DKA admission 2 -3 years ago, who presented to ED with SOB, mid-sternal chest discomfort and centrally located abdominal pain. Pt admitted for DKA secondary to non- compliance. #DKA secondary to non-compliance -Anion gap closed- currently 13, bicarb: 15 -Pt no longer on insulin drip -Pt on levemir 50 U next at 7am and is eating -Will f/u VBG -F/u BMP, fingersticks -Last fingerstick 286 (values climbing) -K+ level 4.2 -on D5W 1/2 NS + 40 mEq KCl -continue to monitor fingersticks every 2 hrs, last fingerstick 230's #TONI-resolved -Most likely d/t DKA #Pain in RLE -Doppler U/S: negative #Hypocalcemia -Correct calcium 7.8 -Pt receiving Ca carbonate 650 mg PO BID #Lactic acidosis secondary to DKA #Hypothyroidism -Continue synthroid 150 mcg PO daily -F/u TSH in 6 weeks F/E/N D5w 1/2 NS Diabetic diet Monitor electrolytes closely Visit type - Emergency Visit Emergency Visit: No - New Patient This patient is new to me today: No - Critical Care Critical Care patient: No
[2017-07-10 18:43] LABS: URINE BACTERIA MANY /hpf (NONE SEEN); URINE MUCUS RARE; URINE RBC 7 /hpf (0-3); URINE WBC 4 /hpf (3-5); YEAST MODERATE
[2017-07-10 20:40] LABS: ANION GAP 16 (8-16); CALCIUM 8.1 mg/dL (8.5-10.1); CO2 14 mmol/L (21-32); CREATININE 1.2 mg/dL (0.55-1.02); GLUCOSE,RANDOM 152 mg/dL (74-106)
[2017-07-11] MEDS: HEPARIN NA (PORCINE) 5,000 UNITS/ML 1ML VIAL SQ SCH ×2 (06:16→13:11)
[2017-07-11] MEDS: INSULIN SLIDING SCALE (NOVOLOG) 1 VIAL SQ SCH ×2 (06:41→11:10)
[2017-07-11] MEDS ORDERED: LEVOTHYROXINE NA 75 MCG TABLET (FP) PO SCH (07:00)
[2017-07-11] MEDS ORDERED: INSULIN DETEMIR 100 UNITS/ML MDV SQ SCH ×2 (07:00)
[2017-07-11] MEDS ORDERED: PT OWN MED DRAWER 7, Y5N ONE ×2 (07:06→09:33)
--- NOTE | 2017-07-11 08:18 | PN ---
Teaching Attending Note Name of Resident: Rosa Domínguez ATTENDING PHYSICIAN STATEMENT I saw and evaluated the patient. I reviewed the resident's note and discussed the case with the resident. I agree with the resident's findings and plan as documented. SUBJECTIVE: No specific complaints OBJECTIVE: Vitals noted ASSESSMENT AND PLAN: Off insulin drip Gap has closed She continues to have mild morning hypoglycemia Will decrease Levamir to 40mg daily Appreciate psychiatric consult Anticipate discharge today See resident note for full details
[2017-07-11 08:21] VITALS: PULSE 104
[2017-07-11 08:50] LABS: ANION GAP 12 (8-16); CALCIUM 8.9 mg/dL (8.5-10.1); CO2 23 mmol/L (21-32); CREATININE 0.8 mg/dL (0.55-1.02); PHOSPHOROUS 2.2 mg/dL (2.5-4.9)
[2017-07-11 09:41] LABS: GLUCOSE,RANDOM 50 mg/dL (74-106)
[2017-07-11] MEDS ORDERED: NAPH,MB-DB/K PH,MBDB POWDER PACKET PO ONE (10:45)
[2017-07-11 11:19] LABS: ALBUMIN 3.2 g/dl (3.4-5.0)
[2017-07-11 14:52] VITALS: BP 109/76; TEMP 98.6
--- NOTE | 2017-07-11 15:33 | DS ---
Physical Exam: SUBJECTIVE: Patient seen and examined at bedside. Pt states that she is still having abdominal pain, but that it is better than before. Pt has been non- compliant with blood draws and fingersticks overnight. This morning her fingerstick was 50, thus levemir could not be given. OBJECTIVE: Vital Signs Period Temp Pulse Resp BP Sys/Kohli Pulse Ox Last 24 Hr 97.7 F-98.6 F 94-104 17-20 109-126/71-85 100-100 PHYSICAL EXAM GENERAL: The patient is awake, alert, and fully oriented, in no acute distress. HEAD: Normal with no signs of trauma. EYES: PERRL, extraocular movements intact, sclera anicteric, conjunctiva clear. ENT: Ears normal, nares patent, oropharynx clear without exudates, moist mucous membranes. NECK: Trachea midline, full range of motion, supple. LUNGS: Breath sounds equal, clear to auscultation bilaterally, no wheezes, no crackles, no accessory muscle use. HEART: Regular rate and rhythm, S1, S2 without murmur, rub or gallop. ABDOMEN: mild abdominal tenderness, normoactive bowel sounds, no guarding, no rebound, no hepatosplenomegaly, no masses. EXTREMITIES: 2+ posterior tibial pulses, warm, well-perfused, no edema. NEUROLOGICAL: Cranial nerves II through XII grossly intact. LABS/VITALS TREND Vitals trend 07/08/17 07/08/17 07/08/17 17:33 20:25 21:00 Pulse Rate 119 H 109 H 108 H Respiratory 26 H 16 25 H Rate 07/08/17 07/09/17 07/09/17 23:00 01:00 03:00 Pulse Rate 105 H 93 H 107 H Respiratory 22 Rate 07/09/17 07/09/17 07/09/17 05:00 07:00 08:00 Pulse Rate 109 H 99 H 98 H Respiratory Rate 07/09/17 07/09/17 07/09/17 10:00 12:00 14:00 Pulse Rate 100 H 94 H 94 H Respiratory Rate 07/09/17 07/09/17 07/09/17 16:00 18:00 20:00 Pulse Rate 97 H 94 H 95 H Respiratory Rate 07/10/17 07/10/17 07/10/17 12:00 14:00 18:00 Pulse Rate 90 99 H 97 H Respiratory Rate 07/10/17 22:00 Pulse Rate 94 H Respiratory Rate Laboratory Tests 07/08/17 07/08/17 07/08/17 18:00 18:06 18:15 VBG pH 7.04 L* POC VBG pCO2 21.5 L POC VBG pO2 32.6 Mixed VBG HCO3 5.6 L* Carbon Dioxide Anion Gap 24 H Creatinine 1.8 H Lactic Acid Calcium Phosphorus Magnesium Alkaline Phosphatase 132 H Troponin I < 0.02 Total Protein 8.7 H TSH 07/08/17 07/08/17 07/08/17 18:15 18:15 22:30 VBG pH POC VBG pCO2 POC VBG pO2 Mixed VBG HCO3 Carbon Dioxide Anion Gap Creatinine Lactic Acid 3.7 H* Calcium Phosphorus Magnesium 2.6 H Alkaline Phosphatase Troponin I Total Protein TSH 86.60 H 07/09/17 07/09/17 07/09/17 02:45 02:48 14:30 VBG pH 7.22 L* D POC VBG pCO2 26.5 L D POC VBG pO2 22.9 L D Mixed VBG HCO3 10.4 L* Carbon Dioxide 16 L D Anion Gap 9 Creatinine 1.3 H 1.1 H Lactic Acid Calcium Phosphorus Magnesium Alkaline Phosphatase Troponin I Total Protein TSH 07/10/17 07/10/17 07/10/17 05:15 12:00 12:00 VBG pH POC VBG pCO2 POC VBG pO2 Mixed VBG HCO3 Carbon Dioxide 18 L D 16 L Anion Gap 10 14 Creatinine Lactic Acid Calcium 7.2 L 7.3 L Phosphorus 1.1 L* Cancelled Magnesium Alkaline Phosphatase Troponin I Total Protein TSH 07/11/17 07:51 VBG pH POC VBG pCO2 POC VBG pO2 Mixed VBG HCO3 Carbon Dioxide 23 D Anion Gap Creatinine Lactic Acid Calcium Phosphorus Magnesium Alkaline Phosphatase Troponin I Total Protein TSH MICROBIOLOGY 07/08/17: urine culture: no growth IMAGING 07/10 RLE duplex U/S: negative for DVT 07/08: CXR: no acute pathology HOSPITAL COURSE: Date of Admission:07/08/17 Date of Discharge: 07/11/17 Admit diagnosis: DKA secondary to non-compliance Pre-admission course 21yo F with significant history of IDDM, hypothyroidism, and history of DKA admission 2-3 years ago who presents to the ED with SOB, mid-sternal chest discomfort, and centrally located abdominal pain. Pt states these problems started 1 day ago and reports her last BGM was 30 about 2 days ago. Pt also reports nausea and vomiting yellowish emesis when her symptoms developed. Her godmother is with her and describes pt being in normal health about 2 days ago and receiving a call earlier this afternoon about the pt needing to go to the hospital. Godmother reports her symptoms have been the same since she met up with her and the CP and SOB have been consistent and not increased in intensity since. Pt was hospitalized for DKA about 2 years prior according to family's accounts. Per patient, she had stopped taking her levothyroxine "a few days ago " (hypothesized by family because of financial reasons), however she states she is very consistent with insulin injections. Her last injection was 1 day ago. Denies any acute illnesses, dizziness, headache, and leg edema. ER course notable for: 1) EKG - NSR @114 bpm, no other abnormalities seen 2) CXR - by my read no cardiomegaly, no congestion, no infilitrates noted; normal 3) CMP - 616 random glucose, 1.8 Cr, corrected Na of 139, HCO3 6, K 5.6; UA - Ketonuria; TSH - 4) VBG - pH of 7.06 5) Insulin bolus of 8 initiated with insulin gtt 6) Levothyroxine 125mcg administered 7) 1L NS administered Hospital course Upon admission, pt was placed in ICU. Labs on admission: anion gap 24, BG 616, 3 + serum ketones, VBG with pH 7.04, pC02 21.5, HCO3 5.6. While in ICU, her anion gap closed at 12 and bicarb started to trend up from 13. Pt's BG also improved from 616 to 150-170's while still in ICU. Pt was maintained on insulin drip at 0.02 U/kg/hr until bicarb >18. She was also placed on d51/2 NS fluids. Pt was very non-compliant while in ICU, refusing fingersticks, BMP blood draws. Pt was later transitioned to med-surg once off insulin drip, and was due for levemir 50U. However, on AM of discharge, pt's BG was 50 and she initially refused to eat, thus levemir was held. Pt will be discharged with levemir pen that she is instructed to use every night. Pt is to follow up with an torch operator in 1 week post-discharge and her primary care physician. Minutes to complete discharge: 32 Discharge Summary Reason For Visit: DIABETIC KETOACIDOSIS Current Active Problems DKA (diabetic ketoacidoses) (Acute) Hypothyroidism (Acute) Condition: Stable - Instructions Diet, Activity, Other Instructions: You were recently in the hospital for worsening Diabetes that resulted from not taking your medication. It is extremely important to take your diabetes medication to avoid coming to the hospital again. Please take the following medications when you go home: -Insulin Levemir 40 units every night before bed using the Levemir Flexpen. We changed this since 50 units was too high an amount. -Insulin sliding scale (when needed- your home medication) -Synthroid 150 mcg daily (your home medication) -Lo Loestrin Fe tablets (your home medication) It is also very important that you check your sugars frequently, and recognize the symptoms that occur when your sugars are low such as: shakiness, hunger, sweating, drowsiness, weakness, and confusion. Have a healthy snack when this occurs. Please follow-up with your primary care doctor and a doctor who can help you manage your diabetes, Dr. Sullivan, within 1 week. If you develop any chest pain, shortness of breath, or any new symptoms, please go tot hospital. We hope you feel better soon. Referrals: STAFF,NOT ON [Primary Care Provider] - Tracy Sullivan MD [Staff Physician] - Disposition: HOME - Home Medications Comprehensive Discharge Medication List: Ambulatory Orders Insulin Sliding Scale [Novolog Vial Sliding Scale -] 0 units SQ ACHS 07/10/17 Levothyroxine [Synthroid -] 150 mcg PO DAILY 07/10/17 Norethindrone-E.estradiol-Iron [Lo Loestrin Fe 1-10 Tablet] 1 tab PO DAILY 07/10 Insulin (Levemir) [Levemir Flexpen -] 40 units SQ DAILY #1 pen 07/11/17 This patient is new to me today: No Emergency Visit: No Critical Care patient: No - Discharge Referral Referred to [facility] No
== END 2017-07-11 15:35 | disposition home or self-care (01) | DRG 638 ==
LOC: JER 17:29 → JERBED 20:25 → JICU 20:56 → J8W 07-10 17:25
PROVIDERS: ADMIT Internal Medicine; ATTEND Internal Medicine
DX: E13.10 Other specified diabetes mellitus with ketoacidosis without coma (principal); N17.9 Acute kidney failure, unspecified; E87.2 Acidosis; Z79.4 Long term (current) use of insulin; E03.9 Hypothyroidism, unspecified; E83.51 Hypocalcemia; Z91.19 Patient's noncompliance with other medical treatment and regimen; M79.661 Pain in right lower leg
CPT/HCPCS: 36415; 71010-TC; 80048; 80053; 81003; 81015; 82009; 82040; 82150; 82570; 82803; 83605; 83690; 83735; 84100; 84443; 84484; 84703; 85025; 85027; 87086; 93005; 93010; 93971-TC; 99284-25; J1644

== ENCOUNTER 2024-01-17 17:15 | Inpatient (IN) | payer OTHER ==
[2024-01-17] MEDS ORDERED: METOCLOPRAMIDE HCL INJECTION 10 MG/2 ML VIAL ONE (18:05)
[2024-01-17] MEDS ORDERED: ACETAMINOPHEN INJECTION 100 ML IVPB ONE (18:05)
[2024-01-17] MEDS ORDERED: FAMOTIDINE 20 MG/50 ML IVPB 20 MG/50 ML MG IVPB ONE (18:05)
[2024-01-17] MEDS ORDERED: HYDROmorphone HCl 2 MG/ML VIAL ONE ×2 (18:57→20:48)
[2024-01-17] MEDS: HYDROmorphone HCl 2 MG/ML VIAL IM ONE (18:58)
[2024-01-17 18:59] LABS: VENOUS BASE EXCESS 0.8 mmol/L (-2-2); VENOUS PCO2 31.3 mmHg (38-52); VENOUS PH 7.499 (7.310-7.410)
[2024-01-17 19:02] LABS: BASO % 1.1 % (0-2.0); EOS % 0.7 % (0-4.5); HEMATOCRIT 29.1 % (32.4-45.2); HEMOGLOBIN 9.8 GM/dL (10.7-15.3); LYMPH % 18.8 % (8-40); MCH 31.6 pg (25.7-33.7); MCHC 33.6 g/dl (32.0-36.0); MONO % 6.8 % (3.8-10.2); NEUT % 72.6 % (42.8-82.8); PLATELET COUNT 381 10^3/uL (134-434); RBC 3.09 M/mm3 (3.60-5.2); WHITE BLOOD COUNT 6.7 K/mm3 (4.0-10.0)
[2024-01-17 19:22] LABS: CHLORIDE 110 mmol/L (98-107); POTASSIUM 5.4 mmol/L (3.5-5.1); SODIUM 142 mmol/L (136-145)
[2024-01-17 19:25] LABS: CALCIUM 9.1 mg/dL (8.5-10.1)
[2024-01-17 19:26] LABS: ALBUMIN 2.2 g/dl (3.4-5.0); ANION GAP 8 mmol/L (4-13); BLOOD UREA NITROGEN 25.5 mg/dL (7-18); CO2 24 mmol/L (21-32); GLUCOSE,RANDOM 116 mg/dL (74-106); MAGNESIUM 2.3 mg/dL (1.8-2.4)
[2024-01-17 19:28] LABS: CREATININE 1.9 mg/dL (0.55-1.3); SGOT/AST 39 U/L (15-37)
[2024-01-17 19:29] LABS: SGPT/ALT 68 U/L (13-61)
[2024-01-17 19:31] LABS: ALK PHOS 171 U/L (45-117); BILIRUBIN,TOTAL 0.8 mg/dL (0.2-1)
[2024-01-17 19:55] LABS: LACTIC ACID 2.5 mmol/L (0.4-2.0)
[2024-01-17 20:01] LABS: ERYTHROCYTE SEDIMENTATION RATE 119 mm/hr (0-20)
[2024-01-17] MEDS: HYDROmorphone HCl 2 MG/ML VIAL IVPUSH ONE ×2 (20:46→21:08)
[2024-01-17] MEDS: LACTATED RINGERS SOLUTION 1000 ML INFUS.BAG IV ONE ×2 (20:46→21:46)
[2024-01-17] MEDS: METOCLOPRAMIDE HCL INJECTION 10 MG/2 ML VIAL IVPB ONE (20:46)
[2024-01-17] MEDS: ACETAMINOPHEN 1000 MG/100 ML BAG IVPB ONE (21:08)
[2024-01-17] MEDS ORDERED: COLLAGENASE CLOSTRIDIUM HIST. 30 GRAMS TUBE TP SCH (21:30)
[2024-01-17] MEDS: FAMOTIDINE 20 MG/50 ML IVPB 20 MG/50 ML MG IVPB ONE (21:46)
[2024-01-17] MEDS ORDERED: PIPERACILLIN/TAZOB 4.5 GM 4.5 GM/100 ML BAG IVPB ONE (23:09)
[2024-01-17] MEDS ORDERED: VANCOMYCIN 1 GRAM (PRE-DOCKED) 1,000 MG/250 ML BAG IVPB ONE (23:32)
[2024-01-17] MEDS: PIPERACILLIN/TAZOB 4.5 GM 4.5 GM in DEXTROSE 5%-WATER 100 ML IVPB ONE (23:40)
[2024-01-18] MEDS ORDERED: METOCLOPRAMIDE HCL INJECTION 10 MG/2 ML VIAL IVPUSH PRN
[2024-01-18] MEDS: DEXTROSE 5%-0.45% SALINE 1,000 ML IV SCH (00:27)
[2024-01-18] MEDS: VANCOMYCIN 1,000 MG in DEXTROSE 5%-WATER - 250 ML IVPB ONE (00:29)
[2024-01-18] MEDS ORDERED: ALBUTEROL SO4 HFA INHALER IH PRN (01:07)
[2024-01-18] MEDS: SODIUM CHLORIDE 1,000 ML IV STA (01:16)
[2024-01-18] MEDS: ACETAMINOPHEN 1000 MG/100 ML BAG IVPB ONE (01:17)
[2024-01-18] MEDS: INSULIN (NOVOLOG) ASPART 100 UNITS/ML 10ML VIAL SQ ONE (01:18)
[2024-01-18] MEDS: METOCLOPRAMIDE HCL INJECTION 10 MG/2 ML VIAL IVPB PRN (01:18)
[2024-01-18] MEDS: PANTOPRAZOLE SODIUM 40 MG VIAL IVPUSH ONE (01:41)
[2024-01-18 02:46] LABS: CHLORIDE 106 mmol/L (98-107); POTASSIUM 4.6 mmol/L (3.5-5.1); SODIUM 138 mmol/L (136-145)
[2024-01-18 02:50] LABS: ANION GAP 8 mmol/L (4-13); BLOOD UREA NITROGEN 23.3 mg/dL (7-18); CO2 24 mmol/L (21-32)
[2024-01-18 02:52] LABS: CREATININE 1.8 mg/dL (0.55-1.3); SGOT/AST 20 U/L (15-37); SGPT/ALT 61 U/L (13-61)
[2024-01-18 02:53] LABS: TOT PROT 7.2 g/dl (6.4-8.2)
[2024-01-18 02:54] LABS: BILIRUBIN,TOTAL 0.7 mg/dL (0.2-1)
[2024-01-18 02:56] LABS: ALK PHOS 158 U/L (45-117)
[2024-01-18] MEDS: morphine SULFATE 4 MG/ML VIAL IVPUSH PRN (02:58)
[2024-01-18 03:52] LABS: CALCIUM 8.6 mg/dL (8.5-10.1)
[2024-01-18 03:57] LABS: GLUCOSE,RANDOM 519 mg/dL (74-106)
[2024-01-18] MEDS: INSULIN ASPART SLIDING SCALE (NOVOLOG) 1 VIAL SQ SCH (06:37)
[2024-01-18] MEDS: amLODIPine BESYLATE 5 MG TABLET (FP) PO ONE (07:15)
[2024-01-18] MEDS: SODIUM CHLORIDE 1,000 ML IV SCH (07:23)
[2024-01-18 08:22] LABS: EOS % 0.2 % (0-4.5); HEMATOCRIT 29.9 % (32.4-45.2); HEMOGLOBIN 9.6 GM/dL (10.7-15.3); LYMPH % 9.5 % (8-40); MCH 30.9 pg (25.7-33.7); MCHC 32.3 g/dl (32.0-36.0); MEAN CELL VOLUME 95.8 fl (80-96); MEAN PLT VOLUME 8.6 fl (7.5-11.1); MONO % 4.9 % (3.8-10.2); NEUT % 84.4 % (42.8-82.8); PLATELET COUNT 383 10^3/uL (134-434); RBC 3.12 M/mm3 (3.60-5.2); RDW 14.7 % (11.6-15.6); WHITE BLOOD COUNT 8.5 K/mm3 (4.0-10.0)
[2024-01-18 08:31] LABS: POTASSIUM 4.3 mmol/L (3.5-5.1)
[2024-01-18 08:33] LABS: CALCIUM 8.4 mg/dL (8.5-10.1)
[2024-01-18 08:34] LABS: BLOOD UREA NITROGEN 22.5 mg/dL (7-18)
[2024-01-18 08:37] LABS: CREATININE 1.7 mg/dL (0.55-1.3)
[2024-01-18 08:40] LABS: LACTIC ACID 3.5 mmol/L (0.4-2.0)
[2024-01-18] MEDS ORDERED: PIPERACILLIN/TAZOB 4.5 GM 4.5 GM in DEXTROSE 5%-WATER 100 ML IVPB SCH (09:00)
[2024-01-18] MEDS: LEVOTHYROXINE SODIUM 100 MCG 5 ML VIAL IVPUSH SCH (09:09)
[2024-01-18] MEDS: PIPERACILLIN/TAZOB 4.5 GM 4.5 GM in DEXTROSE 5%-WATER 100 ML IVPB SCH (09:09)
[2024-01-18 09:50] LABS: EPI CELLS >36 /uL (0-25.1); HYALINE CASTS 1 /uL (0-3.1); PH,URINE 6.5 (5.0-8.0); URINE APPEARANCE CLEAR; URINE BACTERIA 16 /uL (0-1359); URINE BILIRUBIN NEGATIVE (NEGATIVE); URINE COLOR YELLOW; URINE GLUCOSE (UA) 3+ (NEGATIVE); URINE KETONE TRACE (NEGATIVE); URINE LEUK ESTERASE NEGATIVE (NEGATIVE); URINE NITRITE NEGATIVE (NEGATIVE); URINE PROTEIN 3+ (NEGATIVE); URINE RBC 58 /uL (0-23.9); URINE UROBILINOGEN 0.2 mg/dL (0.2-1.0); URINE WBC 38 /uL (0-25.8)
[2024-01-18] MEDS ORDERED: DOCUSATE SODIUM 100 MG CAPSULE (FP) PO PRN (14:50)
[2024-01-18] MEDS: POLYETHYLENE GLYCOL (HEALTHYLAX) 3350 17 GM PACKET PO PRN (14:58)
[2024-01-18] MEDS: PANTOPRAZOLE SODIUM 40 MG VIAL IVPUSH SCH (21:34)
[2024-01-18] MEDS ORDERED: INSULIN (NOVOLOG) ASPART 100 UNITS/ML 10ML VIAL ONE (21:49)
[2024-01-19] MEDS: LEVOTHYROXINE NA 200 MCG TABLET PO SCH (07:09)
[2024-01-19] MEDS: PIPERACILLIN/TAZOB 4.5 GM 4.5 GM in DEXTROSE 5%-WATER 100 ML IVPB ONE (10:28)
[2024-01-19] MEDS: LISINOPRIL 5 MG TABLET PO SCH (10:30)
[2024-01-19] MEDS: DULoxetine HCL 20 MG CAPSULE.DR PO SCH (10:30)
[2024-01-19] MEDS: amLODIPine BESYLATE 5 MG TABLET (FP) PO SCH (10:30)
[2024-01-19 10:39] LABS: BASO % 0.7 % (0-2.0); EOS % 1.2 % (0-4.5); HEMATOCRIT 29.7 % (32.4-45.2); HEMOGLOBIN 9.9 GM/dL (10.7-15.3); LYMPH % 18.9 % (8-40); MCH 32.1 pg (25.7-33.7); MCHC 33.3 g/dl (32.0-36.0); MEAN CELL VOLUME 96.5 fl (80-96); MEAN PLT VOLUME 8.4 fl (7.5-11.1); MONO % 4.6 % (3.8-10.2); NEUT % 74.6 % (42.8-82.8); PLATELET COUNT 359 10^3/uL (134-434); RBC 3.08 M/mm3 (3.60-5.2); RDW 14.7 % (11.6-15.6); WHITE BLOOD COUNT 6.3 K/mm3 (4.0-10.0)
[2024-01-19 11:13] LABS: CHOLESTEROL 292 mg/dL (50-200)
[2024-01-19 11:14] LABS: LDL CHOLESTEROL (ONLY SJRH) 188 mg/dL (5-100)
[2024-01-19 11:16] LABS: HDL CHOLESTEROL 80 mg/dL (40-60)
[2024-01-19] MEDS ORDERED: INSULIN (NOVOLOG) ASPART 100 UNITS/ML 10ML VIAL ONE (11:33)
[2024-01-19 16:06] VITALS: BMI 29.5
[2024-01-19] MEDS ORDERED: PIPERACILLIN/TAZOB 4.5 GM 4.5 GM in DEXTROSE 5%-WATER 100 ML IVPB SCH (18:00)
[2024-01-19] MEDS: VANCOMYCIN/WATER FOR INJ (PEG) 1,000 MG/200 ML BAG IVPB SCH (18:00)
[2024-01-19] MEDS: ATORVASTATIN CA 80 MG TABLET (FP) PO ONE (18:44)
[2024-01-19] MEDS: ACETAMINOPHEN 1000 MG/100 ML BAG IVPB ONE (21:13)
[2024-01-19] MEDS: TRIMETHOBENZAMIDE HCL 200MG/2ML INJ IM ONE (21:13)
[2024-01-19] MEDS: PIPERACILLIN/TAZOB 3.375 GM 3.375 GM in DEXTROSE 5%-WATER - 50 ML IVPB SCH (21:34)
[2024-01-19 21:44] LABS: POTASSIUM 4.2 mmol/L (3.5-5.1)
[2024-01-19 21:47] LABS: ALBUMIN 1.8 g/dl (3.4-5.0); MAGNESIUM 1.9 mg/dL (1.8-2.4)
[2024-01-19 21:50] LABS: CREATININE 1.5 mg/dL (0.55-1.3)
[2024-01-19 21:51] LABS: BILIRUBIN,TOTAL 0.6 mg/dL (0.2-1); TOT PROT 6.4 g/dl (6.4-8.2)
[2024-01-19] MEDS: ONDANSETRON 4 MG/2 ML VIAL IVPUSH ONE (22:08)
[2024-01-20] MEDS: VANCOMYCIN 1,000 MG in DEXTROSE 5%-WATER - 250 ML IVPB SCH (01:48)
[2024-01-20] MEDS: VANCOMYCIN/WATER 1250 MG 1,250 MG/250 ML BAG IVPB SCH (01:48)
[2024-01-20] MEDS ORDERED: ACETAMINOPHEN 1000 MG/100 ML BAG IVPB PRN (05:30)
[2024-01-20] MEDS: INSULIN (LEVEMIR) 100 UNITS/ML UNITS SQ SCH ×2 (06:37→23:17)
[2024-01-20] MEDS: ACETAMINOPHEN 1000 MG/100 ML BAG IVPB SCH (06:38)
[2024-01-20] MEDS ORDERED: INSULIN ASPART SLIDING SCALE (NOVOLOG) 1 VIAL SQ ONE (08:40)
[2024-01-20] MEDS ORDERED: LEVOTHYROXINE SODIUM 100 MCG 5 ML VIAL IVPUSH SCH (10:00)
[2024-01-20] MEDS: LEVOTHYROXINE SODIUM 100 MCG 5 ML VIAL IVPUSH SCH (10:21)
[2024-01-20 12:49] LABS: BASO % 0.8 % (0-2.0); EOS % 0.3 % (0-4.5); HEMATOCRIT 30.2 % (32.4-45.2); HEMOGLOBIN 9.8 GM/dL (10.7-15.3); LYMPH % 14.5 % (8-40); MCH 30.9 pg (25.7-33.7); MCHC 32.3 g/dl (32.0-36.0); MEAN CELL VOLUME 95.5 fl (80-96); MEAN PLT VOLUME 7.6 fl (7.5-11.1); MONO % 4.8 % (3.8-10.2); NEUT % 79.6 % (42.8-82.8); PLATELET COUNT 361 10^3/uL (134-434); RBC 3.17 M/mm3 (3.60-5.2); RDW 14.2 % (11.6-15.6)
[2024-01-20 13:03] LABS: POTASSIUM 3.8 mmol/L (3.5-5.1)
[2024-01-20 13:08] LABS: BLOOD UREA NITROGEN 16.4 mg/dL (7-18); CALCIUM 8.2 mg/dL (8.5-10.1)
[2024-01-20 13:11] LABS: CREATININE 1.8 mg/dL (0.55-1.3)
[2024-01-20 13:13] LABS: BILIRUBIN,TOTAL 0.6 mg/dL (0.2-1)
[2024-01-20] MEDS: ONDANSETRON 4 MG/2 ML VIAL IVPUSH ONE (13:31)
[2024-01-20 14:11] LABS: MAGNESIUM 2.1 mg/dL (1.8-2.4)
[2024-01-20] MEDS: METOCLOPRAMIDE HCL INJECTION 10 MG/2 ML VIAL IVPUSH PRN (17:13)
[2024-01-20] MEDS ORDERED: clonazePAM 0.5 MG TABLET PO ONE (19:39)
[2024-01-20] MEDS: clonazePAM 0.5 MG TABLET PO ONE (22:06)
[2024-01-20] MEDS: ATORVASTATIN CA 80 MG TABLET (FP) PO SCH (23:18)
[2024-01-20] MEDS: INSULIN ASPART SLIDING SCALE (NOVOLOG) 1 VIAL SQ SCH (23:19)
[2024-01-21] MEDS: INSULIN (NOVOLOG) ASPART 100 UNITS/ML 10ML VIAL SQ SCH (06:48)
[2024-01-21] MEDS: INSULIN (LEVEMIR) 100 UNITS/ML UNITS SQ SCH ×2 (06:48→21:13)
[2024-01-21] MEDS: metoPROLOL SUCCINATE 25 MG TAB.SR.24H (FP) PO SCH (12:09)
[2024-01-22] MEDS: INSULIN (LEVEMIR) 100 UNITS/ML UNITS SQ SCH (06:01)
[2024-01-23] MEDS ORDERED: ALBUTEROL SO4 HFA INHALER IH PRN (09:22)
[2024-01-23] MEDS ORDERED: DOCUSATE SODIUM 100 MG CAPSULE (FP) PO PRN (09:22)
[2024-01-23] MEDS ORDERED: POLYETHYLENE GLYCOL (HEALTHYLAX) 3350 17 GM PACKET PO PRN (09:22)
[2024-01-23] MEDS: LISINOPRIL 5 MG TABLET PO SCH (09:45)
[2024-01-23] MEDS: DULoxetine HCL 20 MG CAPSULE.DR PO SCH (09:45)
[2024-01-23] MEDS: amLODIPine BESYLATE 5 MG TABLET (FP) PO SCH (09:45)
[2024-01-23] MEDS: PIPERACILLIN/TAZOB 3.375 GM 3.375 GM in DEXTROSE 5%-WATER - 50 ML IVPB SCH (09:45)
[2024-01-23] MEDS: PANTOPRAZOLE SODIUM 40 MG VIAL IVPUSH SCH (09:46)
[2024-01-23] MEDS: SODIUM CHLORIDE 1,000 ML IV SCH (09:47)
[2024-01-23] MEDS ORDERED: COLLAGENASE CLOSTRIDIUM HIST. 30 GRAMS TUBE TP SCH (10:00)
[2024-01-23] MEDS: COLLAGENASE CLOSTRIDIUM HIST. 30 GRAMS TUBE TP SCH (12:00)
[2024-01-23] MEDS: VANCOMYCIN/WATER FOR INJ (PEG) 1,000 MG/200 ML BAG IVPB SCH (18:09)
[2024-01-24] MEDS ORDERED: INSULIN (LEVEMIR) 100 UNITS/ML UNITS SQ ONE (06:54)
[2024-01-24] MEDS ORDERED: INSULIN ASPART SLIDING SCALE (NOVOLOG) 1 VIAL SQ ONE (06:54)
[2024-01-24] MEDS: AMINO ACIDS/PROTEIN HYDROLYS 30 ML LIQUID.PKT PO SCH (09:46)
[2024-01-24] MEDS: ENOXAPARIN NA (PORCINE) 40 MG/0.4 ML DISP.SYRIN SQ SCH (09:47)
[2024-01-24] MEDS: MULTIVITAMINS THER W-MINERALS COMBO TABLET (FP) PO SCH (09:48)
[2024-01-25] MEDS: MELATONIN 5 MG TABLETS PO PRN (01:59)
[2024-01-25 17:12] LABS: BASO % 0.6 % (0-2.0); EOS % 1.7 % (0-4.5); HEMATOCRIT 26.2 % (32.4-45.2); HEMOGLOBIN 8.6 GM/dL (10.7-15.3); LYMPH % 32.4 % (8-40); MCH 30.9 pg (25.7-33.7); MCHC 32.9 g/dl (32.0-36.0); MEAN PLT VOLUME 7.6 fl (7.5-11.1); MONO % 6.3 % (3.8-10.2); PLATELET COUNT 257 10^3/uL (134-434); RBC 2.79 M/mm3 (3.60-5.2); RDW 14.6 % (11.6-15.6); WHITE BLOOD COUNT 4.4 K/mm3 (4.0-10.0)
[2024-01-25 17:33] LABS: POTASSIUM 3.6 mmol/L (3.5-5.1)
[2024-01-25 17:34] LABS: CALCIUM 7.6 mg/dL (8.5-10.1)
[2024-01-25 17:35] LABS: ALBUMIN 1.6 g/dl (3.4-5.0); BLOOD UREA NITROGEN 11.4 mg/dL (7-18)
[2024-01-25 17:38] LABS: CREATININE 1.6 mg/dL (0.55-1.3)
[2024-01-25 17:40] LABS: BILIRUBIN,TOTAL 0.2 mg/dL (0.2-1); TOT PROT 5.6 g/dl (6.4-8.2)
[2024-01-26] MEDS ORDERED: VANCOMYCIN 1,000 MG VIAL (RESTRICTED TO ID ONLY) ONE (15:13)
[2024-01-26] MEDS ORDERED: MIDAZOLAM HCL 2 MG/2 ML SINGLE DOSE VIAL ONE (15:35)
[2024-01-26] MEDS ORDERED: DEXTROSE 50%-WATER 25 GM/50 ML DISP.SYRIN ONE (15:55)
[2024-01-26] MEDS ORDERED: ROCURONIUM BROMIDE 50 MG/5 ML SYRINGE ONE (16:00)
[2024-01-26] MEDS: LIDOCAINE HCL 1%, 10 MG/ML (20ML VIAL) NR ONE (16:02)
[2024-01-26] MEDS: BUPIVACAINE HCL/PF 0.5% (5 MG/ML) 30 ML VIAL IJ ONE (16:02)
[2024-01-26] MEDS ORDERED: GENTAMICIN SO4 80 MG/2 ML VIAL ONE (16:09)
[2024-01-26] MEDS ORDERED: PROPOFOL 20 ML ONE (16:17)
[2024-01-26] MEDS ORDERED: NEOSTIGMINE METHYLSULFATE 0.5 MG/1 ML - 10 ML MDV ONE (17:04)
[2024-01-26] MEDS ORDERED: DOCUSATE SODIUM 100 MG CAPSULE (FP) PO PRN (17:15)
[2024-01-26] MEDS ORDERED: ALBUTEROL SO4 HFA INHALER IH PRN (17:15)
[2024-01-26] MEDS ORDERED: ONDANSETRON 4 MG/2 ML VIAL IVPUSH PRN (17:19)
[2024-01-26] MEDS ORDERED: LACTATED RINGERS SOLUTION 1,000 ML IV SCH (17:30)
[2024-01-26 17:58] LABS: BASO % 0.7 % (0-2.0); EOS % 1.4 % (0-4.5); HEMATOCRIT 25.1 % (32.4-45.2); HEMOGLOBIN 8.4 GM/dL (10.7-15.3); LYMPH % 30.3 % (8-40); MCH 31.2 pg (25.7-33.7); MCHC 33.3 g/dl (32.0-36.0); MEAN CELL VOLUME 93.9 fl (80-96); MEAN PLT VOLUME 8.1 fl (7.5-11.1); MONO % 6.7 % (3.8-10.2); NEUT % 60.9 % (42.8-82.8); PLATELET COUNT 259 10^3/uL (134-434); RBC 2.67 M/mm3 (3.60-5.2); RDW 14.5 % (11.6-15.6); WHITE BLOOD COUNT 4.3 K/mm3 (4.0-10.0)
[2024-01-26] MEDS: SODIUM CHLORIDE 1,000 ML IV SCH (18:05)
[2024-01-26] MEDS: PIPERACILLIN/TAZOB 3.375 GM 3.375 GM in DEXTROSE 5%-WATER - 50 ML IVPB SCH (19:45)
[2024-01-26] MEDS: VANCOMYCIN/WATER FOR INJ (PEG) 1,000 MG/200 ML BAG IVPB SCH (20:23)
[2024-01-26] MEDS: PANTOPRAZOLE SODIUM 40 MG VIAL IVPUSH SCH (22:04)
[2024-01-26] MEDS: MELATONIN 5 MG TABLETS PO PRN (22:17)
[2024-01-26] MEDS: ATORVASTATIN CA 80 MG TABLET (FP) PO SCH (22:17)
[2024-01-26] MEDS: INSULIN (LEVEMIR) 100 UNITS/ML UNITS SQ SCH (22:17)
[2024-01-26] MEDS: INSULIN ASPART SLIDING SCALE (NOVOLOG) 1 VIAL SQ SCH (22:18)
[2024-01-27] MEDS: INSULIN (NOVOLOG) ASPART 100 UNITS/ML 10ML VIAL SQ SCH (08:50)
[2024-01-27] MEDS: AMINO ACIDS/PROTEIN HYDROLYS 30 ML LIQUID.PKT PO SCH (08:59)
[2024-01-27] MEDS: DULoxetine HCL 20 MG CAPSULE.DR PO SCH (09:13)
[2024-01-27] MEDS: metoPROLOL SUCCINATE 25 MG TAB.SR.24H (FP) PO SCH (09:13)
[2024-01-27] MEDS: MULTIVITAMINS THER W-MINERALS COMBO TABLET (FP) PO SCH (09:13)
[2024-01-27] MEDS: LISINOPRIL 5 MG TABLET PO SCH (09:14)
[2024-01-27] MEDS: amLODIPine BESYLATE 5 MG TABLET (FP) PO SCH (09:14)
[2024-01-27 11:55] LABS: BASO % 0.7 % (0-2.0); EOS % 1.4 % (0-4.5); HEMATOCRIT 25.1 % (32.4-45.2); HEMOGLOBIN 8.2 GM/dL (10.7-15.3); LYMPH % 18.6 % (8-40); MCH 31.1 pg (25.7-33.7); MCHC 32.7 g/dl (32.0-36.0); MEAN CELL VOLUME 95.1 fl (80-96); MONO % 5.2 % (3.8-10.2); NEUT % 74.1 % (42.8-82.8); PLATELET COUNT 255 10^3/uL (134-434); RBC 2.64 M/mm3 (3.60-5.2); RDW 14.5 % (11.6-15.6); WHITE BLOOD COUNT 5.4 K/mm3 (4.0-10.0)
[2024-01-27] MEDS: LEVOTHYROXINE SODIUM 100 MCG 5 ML VIAL IVPUSH SCH (12:29)
[2024-01-27] MEDS: INSULIN (LEVEMIR) 100 UNITS/ML UNITS SQ SCH ×2 (16:21→22:36)
[2024-01-27] MEDS ORDERED: INSULIN ASPART SLIDING SCALE (NOVOLOG) 1 VIAL SQ ONE (17:39)
[2024-01-28] MEDS: INSULIN (LEVEMIR) 100 UNITS/ML UNITS SQ SCH (06:53)
[2024-01-28] MEDS ORDERED: INSULIN (NOVOLOG) ASPART 100 UNITS/ML 10ML VIAL SQ SCH (11:56)
[2024-01-28 12:23] LABS: BASO % 0.6 % (0-2.0); EOS % 1.3 % (0-4.5); HEMATOCRIT 24.6 % (32.4-45.2); HEMOGLOBIN 8.1 GM/dL (10.7-15.3); LYMPH % 20.4 % (8-40); MCHC 32.7 g/dl (32.0-36.0); MEAN CELL VOLUME 94.9 fl (80-96); MEAN PLT VOLUME 8.4 fl (7.5-11.1); MONO % 7.5 % (3.8-10.2); NEUT % 70.2 % (42.8-82.8); PLATELET COUNT 256 10^3/uL (134-434); RDW 14.1 % (11.6-15.6); WHITE BLOOD COUNT 5.3 K/mm3 (4.0-10.0)
[2024-01-28 13:17] LABS: POTASSIUM 3.5 mmol/L (3.5-5.1)
[2024-01-28 13:24] LABS: ALBUMIN 1.8 g/dl (3.4-5.0); CALCIUM 8.5 mg/dL (8.5-10.1)
[2024-01-28 13:27] LABS: CREATININE 1.8 mg/dL (0.55-1.3)
[2024-01-28 13:29] LABS: BILIRUBIN,TOTAL 0.2 mg/dL (0.2-1); TOT PROT 5.8 g/dl (6.4-8.2)
[2024-01-29] MEDS: INSULIN (LEVEMIR) 100 UNITS/ML UNITS SQ SCH (06:10)
[2024-01-29] MEDS: POLYETHYLENE GLYCOL (HEALTHYLAX) 3350 17 GM PACKET PO PRN (10:53)
[2024-01-29] MEDS: ACETAMINOPHEN 1000 MG/100 ML BAG IVPB PRN (13:43)
[2024-01-29] MEDS: KETOROLAC TROMETHAMINE 30 MG/1 ML VIAL IVPUSH PRN (18:35)
[2024-01-29] MEDS: AMOX TR/POT CLAV 500MG/125MG TABLETS (FP) PO SCH (18:43)
[2024-01-30 07:57] LABS: BASO % 0.6 % (0-2.0); HEMATOCRIT 25.7 % (32.4-45.2); HEMOGLOBIN 8.7 GM/dL (10.7-15.3); LYMPH % 18.5 % (8-40); MCH 31.6 pg (25.7-33.7); MCHC 33.8 g/dl (32.0-36.0); MEAN CELL VOLUME 93.6 fl (80-96); MEAN PLT VOLUME 8.1 fl (7.5-11.1); NEUT % 72.9 % (42.8-82.8); PLATELET COUNT 259 10^3/uL (134-434); RBC 2.75 M/mm3 (3.60-5.2); RDW 13.9 % (11.6-15.6); WHITE BLOOD COUNT 4.8 K/mm3 (4.0-10.0)
[2024-01-30 08:17] LABS: CHLORIDE 102 mmol/L (98-107); POTASSIUM 3.4 mmol/L (3.5-5.1); SODIUM 136 mmol/L (136-145)
[2024-01-30 08:21] LABS: ANION GAP 6 mmol/L (4-13); BLOOD UREA NITROGEN 22.8 mg/dL (7-18); CALCIUM 8.4 mg/dL (8.5-10.1); CO2 28 mmol/L (21-32)
[2024-01-30 08:24] LABS: CREATININE 1.8 mg/dL (0.55-1.3)
[2024-01-30 08:25] LABS: SGOT/AST 16 U/L (15-37)
[2024-01-30 08:26] LABS: BILIRUBIN,TOTAL 0.4 mg/dL (0.2-1); TOT PROT 6.2 g/dl (6.4-8.2)
[2024-01-30 08:27] LABS: ALK PHOS 116 U/L (45-117); SGPT/ALT 24 U/L (13-61)
[2024-01-30 08:42] LABS: GLUCOSE,RANDOM 417 mg/dL (74-106)
[2024-01-30] MEDS: DAPTOMYCIN 700 MG in SODIUM CHLORIDE 50 ML IVPB SCH (10:13)
[2024-01-30] MEDS: LEVOTHYROXINE NA 125 MCG TABLET (FP) PO SCH (12:05)
[2024-01-30] MEDS: POTASSIUM CHLORIDE ORAL LIQUID 20 MEQ/15 ML PO ONE (16:45)
[2024-01-30] MEDS: traZODone HCL 50 MG TABLET (FP) PO SCH (21:04)
[2024-01-31] MEDS: ACETAMINOPHEN 1000 MG/100 ML BAG IVPB ONE (00:46)
[2024-01-31] MEDS: METOCLOPRAMIDE HCL INJECTION 10 MG/2 ML VIAL IVPUSH PRN (09:57)
[2024-01-31] MEDS: PANTOPRAZOLE 40 MG TABLET PO SCH (09:57)
[2024-02-01] MEDS ORDERED: LEVOTHYROXINE NA 125 MCG TABLET (FP) PO SCH (17:42)
[2024-02-01] MEDS: GABAPENTIN 100 MG CAPSULE PO SCH (21:26)
[2024-02-01] MEDS: INSULIN (LEVEMIR) 100 UNITS/ML UNITS SQ SCH (21:28)
[2024-02-01] MEDS: INSULIN ASPART SLIDING SCALE (NOVOLOG) 1 VIAL SQ SCH (21:30)
[2024-02-02] MEDS ORDERED: LEVOTHYROXINE NA 75 MCG TABLET (FP) ONE (06:07)
[2024-02-02] MEDS: LEVOTHYROXINE 100 MCG, LEVOTHYROXINE 75 MCG PO SCH (06:08)
[2024-02-02] MEDS: INSULIN (LEVEMIR) 100 UNITS/ML UNITS SQ SCH (06:10)
[2024-02-02] MEDS ORDERED: GABAPENTIN 100 MG CAPSULE PO SCH (10:00)
[2024-02-02] MEDS: KETOROLAC TROMETHAMINE 15 MG/ML VIAL IVPUSH ONE (22:40)
[2024-02-03] MEDS: INSULIN (LEVEMIR) 100 UNITS/ML UNITS SQ SCH ×2 (06:19→22:29)
[2024-02-03] MEDS: LEVOTHYROXINE NA 100 MCG TABLET (FP) PO SCH (06:20)
[2024-02-03 06:49] LABS: BASO % 0.7 % (0-2.0); EOS % 1.6 % (0-4.5); HEMATOCRIT 24.6 % (32.4-45.2); HEMOGLOBIN 7.9 GM/dL (10.7-15.3); LYMPH % 25.2 % (8-40); MCH 30.7 pg (25.7-33.7); MCHC 32.2 g/dl (32.0-36.0); MEAN CELL VOLUME 95.1 fl (80-96); MEAN PLT VOLUME 7.9 fl (7.5-11.1); MONO % 5.7 % (3.8-10.2); NEUT % 66.8 % (42.8-82.8); PLATELET COUNT 252 10^3/uL (134-434); RBC 2.59 M/mm3 (3.60-5.2); RDW 14.3 % (11.6-15.6); WHITE BLOOD COUNT 4.6 K/mm3 (4.0-10.0)
[2024-02-03 07:06] LABS: CHLORIDE 111 mmol/L (98-107); SODIUM 143 mmol/L (136-145)
[2024-02-03 07:09] LABS: CALCIUM 8.2 mg/dL (8.5-10.1)
[2024-02-03 07:10] LABS: ANION GAP 7 mmol/L (4-13); BLOOD UREA NITROGEN 30.4 mg/dL (7-18); CO2 25 mmol/L (21-32)
[2024-02-03 07:13] LABS: SGOT/AST 47 U/L (15-37); SGPT/ALT 35 U/L (13-61)
[2024-02-03 07:15] LABS: BILIRUBIN,TOTAL 0.3 mg/dL (0.2-1); TOT PROT 5.8 g/dl (6.4-8.2)
[2024-02-03 07:16] LABS: ALK PHOS 120 U/L (45-117)
[2024-02-03 07:44] LABS: GLUCOSE,RANDOM 416 mg/dL (74-106)
[2024-02-03] MEDS: KETOROLAC TROMETHAMINE 30 MG/1 ML VIAL IVPUSH ONE (11:58)
[2024-02-03] MEDS ORDERED: ACETAMINOPHEN 1000 MG/100 ML BAG IVPB PRN (15:49)
[2024-02-03] MEDS: KETOROLAC TROMETHAMINE 10 MG TABLET PO PRN (22:47)
[2024-02-04 07:14] LABS: BASO % 0.7 % (0-2.0); EOS % 2.1 % (0-4.5); HEMATOCRIT 24.5 % (32.4-45.2); HEMOGLOBIN 8.1 GM/dL (10.7-15.3); LYMPH % 25.6 % (8-40); MCH 31.6 pg (25.7-33.7); MEAN CELL VOLUME 95.6 fl (80-96); MONO % 5.5 % (3.8-10.2); NEUT % 66.1 % (42.8-82.8); PLATELET COUNT 259 10^3/uL (134-434); RBC 2.56 M/mm3 (3.60-5.2); RDW 14.2 % (11.6-15.6); WHITE BLOOD COUNT 4.9 K/mm3 (4.0-10.0)
[2024-02-04 07:30] LABS: CHLORIDE 110 mmol/L (98-107); POTASSIUM 4.4 mmol/L (3.5-5.1); SODIUM 140 mmol/L (136-145)
[2024-02-04 07:36] LABS: ALBUMIN 2.1 g/dl (3.4-5.0); ANION GAP 6 mmol/L (4-13); CALCIUM 8.4 mg/dL (8.5-10.1); CO2 23 mmol/L (21-32)
[2024-02-04 07:40] LABS: SGOT/AST 33 U/L (15-37); SGPT/ALT 39 U/L (13-61)
[2024-02-04 07:42] LABS: BILIRUBIN,TOTAL 0.3 mg/dL (0.2-1); TOT PROT 6.1 g/dl (6.4-8.2)
[2024-02-04 07:43] LABS: ALK PHOS 110 U/L (45-117)
[2024-02-04 07:57] LABS: GLUCOSE,RANDOM 415 mg/dL (74-106)
[2024-02-04] MEDS: SODIUM CHLORIDE 0.45% 1,000 ML IV SCH (13:18)
[2024-02-04] MEDS: INSULIN (LEVEMIR) 100 UNITS/ML UNITS SQ SCH (22:51)
[2024-02-04] MEDS: GABAPENTIN 300 MG CAPSULE PO SCH (22:51)
[2024-02-05] MEDS ORDERED: DEXTROSE 50%-WATER - 25 GM/50 ML VIAL IVPUSH ONE (02:12)
[2024-02-05] MEDS: GABAPENTIN 300 MG CAPSULE PO SCH (14:07)
[2024-02-05] MEDS ORDERED: FENTANYL PATCH WASTE TD PRN (18:00)
[2024-02-05] MEDS: fentaNYL 12mcg/hr PATCH.TD72 TD SCH (18:50)
[2024-02-05] MEDS: ACETAMINOPHEN 1000 MG/100 ML BAG IVPB PRN (22:43)
[2024-02-06 08:20] LABS: POTASSIUM 4.2 mmol/L (3.5-5.1)
[2024-02-06 08:26] LABS: CALCIUM 8.4 mg/dL (8.5-10.1)
[2024-02-06 08:27] LABS: BLOOD UREA NITROGEN 30.7 mg/dL (7-18)
[2024-02-06 08:30] LABS: CREATININE 1.6 mg/dL (0.55-1.3)
[2024-02-06 08:31] LABS: BILIRUBIN,TOTAL 0.2 mg/dL (0.2-1); TOT PROT 5.8 g/dl (6.4-8.2)
[2024-02-07 08:57] LABS: CHLORIDE 110 mmol/L (98-107); POTASSIUM 4.4 mmol/L (3.5-5.1); SODIUM 139 mmol/L (136-145)
[2024-02-07 09:01] LABS: ANION GAP 8 mmol/L (4-13); BLOOD UREA NITROGEN 27.2 mg/dL (7-18); CALCIUM 8.4 mg/dL (8.5-10.1); CO2 21 mmol/L (21-32)
[2024-02-07 09:04] LABS: CREATININE 1.8 mg/dL (0.55-1.3); SGOT/AST 35 U/L (15-37); SGPT/ALT 34 U/L (13-61)
[2024-02-07 09:08] LABS: BILIRUBIN,TOTAL 0.3 mg/dL (0.2-1)
[2024-02-07 09:09] LABS: ALK PHOS 105 U/L (45-117)
[2024-02-07 09:10] LABS: TOT PROT 5.7 g/dl (6.4-8.2)
[2024-02-07 09:13] LABS: GLUCOSE,RANDOM 554 mg/dL (74-106)
[2024-02-07] MEDS: DULoxetine HCL 20 MG CAPSULE.DR PO SCH (10:34)
[2024-02-07] MEDS: ACETAMINOPHEN 1000 MG/100 ML BAG IVPB ONE (21:06)
[2024-02-08] MEDS: ACETAMINOPHEN 1000 MG/100 ML BAG IVPB PRN (21:06)
[2024-02-09 08:14] LABS: POTASSIUM 4.3 mmol/L (3.5-5.1)
[2024-02-09 08:20] LABS: CALCIUM 8.4 mg/dL (8.5-10.1)
[2024-02-09 08:21] LABS: ALBUMIN 2.1 g/dl (3.4-5.0)
[2024-02-09 08:24] LABS: CREATININE 1.5 mg/dL (0.55-1.3)
[2024-02-09 08:25] LABS: BILIRUBIN,TOTAL 0.2 mg/dL (0.2-1); TOT PROT 6.1 g/dl (6.4-8.2)
[2024-02-09 08:46] LABS: BASO % 0.7 % (0-2.0); EOS % 2.9 % (0-4.5); HEMATOCRIT 21.7 % (32.4-45.2); HEMOGLOBIN 7.4 GM/dL (10.7-15.3); LYMPH % 24.9 % (8-40); MCH 32.3 pg (25.7-33.7); MCHC 34.2 g/dl (32.0-36.0); MEAN CELL VOLUME 94.5 fl (80-96); MONO % 5.9 % (3.8-10.2); NEUT % 65.6 % (42.8-82.8); PLATELET COUNT 301 10^3/uL (134-434); RDW 14.3 % (11.6-15.6); WHITE BLOOD COUNT 5.8 K/mm3 (4.0-10.0)
[2024-02-09] MEDS: FLUCONAZOLE 150 MG TABLET PO ONE (17:23)
[2024-02-09] MEDS: NYSTATIN 100000 UNIT/GM TOPICAL OINTMENT 15 GM TUBE TP SCH (22:16)
[2024-02-09] MEDS: ACETAMINOPHEN 1000 MG/100 ML BAG IVPB PRN (22:36)
[2024-02-10] MEDS: INSULIN (NOVOLOG) ASPART 100 UNITS/ML 10ML VIAL SQ ONE (06:36)
[2024-02-10] MEDS ORDERED: INSULIN ASPART SLIDING SCALE (NOVOLOG) 1 VIAL SQ ONE (06:52)
[2024-02-10] MEDS ORDERED: INSULIN (LEVEMIR) 100 UNITS/ML UNITS SQ ONE (06:52)
[2024-02-10 13:04] LABS: BASO % 0.6 % (0-2.0); HEMATOCRIT 21.4 % (32.4-45.2); HEMOGLOBIN 7.1 GM/dL (10.7-15.3); LYMPH % 23.9 % (8-40); MCH 31.5 pg (25.7-33.7); MCHC 33.3 g/dl (32.0-36.0); MEAN CELL VOLUME 94.6 fl (80-96); MEAN PLT VOLUME 8.2 fl (7.5-11.1); MONO % 6.3 % (3.8-10.2); NEUT % 67.2 % (42.8-82.8); PLATELET COUNT 307 10^3/uL (134-434); RBC 2.26 M/mm3 (3.60-5.2); WHITE BLOOD COUNT 5.2 K/mm3 (4.0-10.0)
[2024-02-10 13:17] LABS: POTASSIUM 4.6 mmol/L (3.5-5.1)
[2024-02-10 13:43] LABS: CALCIUM 8.3 mg/dL (8.5-10.1)
[2024-02-10 13:44] LABS: ALBUMIN 2.2 g/dl (3.4-5.0); BLOOD UREA NITROGEN 24.9 mg/dL (7-18)
[2024-02-10 13:47] LABS: CREATININE 1.5 mg/dL (0.55-1.3)
[2024-02-10 13:48] LABS: BILIRUBIN,TOTAL 0.3 mg/dL (0.2-1)
[2024-02-11] MEDS: ACETAMINOPHEN 1000 MG/100 ML BAG IVPB ONE (03:35)
[2024-02-11] MEDS: KETOROLAC TROMETHAMINE 15 MG/ML VIAL IVPUSH ONE (05:40)
[2024-02-11] MEDS: INSULIN (LEVEMIR) 100 UNITS/ML UNITS SQ SCH (06:05)
[2024-02-11] MEDS: ACETAMINOPHEN 1000 MG/100 ML BAG IVPB PRN (11:38)
[2024-02-12 07:37] LABS: BASO % 0.5 % (0-2.0); EOS % 1.8 % (0-4.5); HEMATOCRIT 24.9 % (32.4-45.2); HEMOGLOBIN 8.4 GM/dL (10.7-15.3); LYMPH % 18.5 % (8-40); MCH 31.6 pg (25.7-33.7); MCHC 33.6 g/dl (32.0-36.0); MEAN CELL VOLUME 94.1 fl (80-96); MEAN PLT VOLUME 7.4 fl (7.5-11.1); MONO % 6.9 % (3.8-10.2); NEUT % 72.3 % (42.8-82.8); PLATELET COUNT 337 10^3/uL (134-434); RBC 2.64 M/mm3 (3.60-5.2); RDW 14.6 % (11.6-15.6); WHITE BLOOD COUNT 6.5 K/mm3 (4.0-10.0)
[2024-02-12 08:02] LABS: POTASSIUM 4.5 mmol/L (3.5-5.1)
[2024-02-12 08:04] LABS: CALCIUM 8.2 mg/dL (8.5-10.1)
[2024-02-12 08:05] LABS: ALBUMIN 2.2 g/dl (3.4-5.0); BLOOD UREA NITROGEN 29.8 mg/dL (7-18)
[2024-02-12 08:08] LABS: CREATININE 1.7 mg/dL (0.55-1.3)
[2024-02-12 08:09] LABS: BILIRUBIN,TOTAL 0.4 mg/dL (0.2-1)
[2024-02-13] MEDS ORDERED: DEXTROSE 50%-WATER 25 GM/50 ML DISP.SYRIN ONE (09:42)
[2024-02-13] MEDS: DEXTROSE 50%-WATER 25 GM/50 ML DISP.SYRIN IVPUSH ONE (09:55)
[2024-02-13] MEDS: SODIUM CHLORIDE 0.45% 1,000 ML IV SCH (14:29)
[2024-02-13] MEDS: ACETAMINOPHEN 1000 MG/100 ML BAG IVPB ONE (20:50)
[2024-02-14] MEDS ORDERED: DEXTROSE 50%-WATER 25 GM/50 ML DISP.SYRIN ONE (05:58)
[2024-02-14] MEDS: DEXTROSE 50%-WATER - 25 GM/50 ML VIAL IVPUSH ONE (06:03)
[2024-02-14 08:42] LABS: BASO % 0.7 % (0-2.0); EOS % 1.2 % (0-4.5); HEMATOCRIT 26.8 % (32.4-45.2); HEMOGLOBIN 8.8 GM/dL (10.7-15.3); LYMPH % 23.2 % (8-40); MEAN CELL VOLUME 93.9 fl (80-96); MEAN PLT VOLUME 7.9 fl (7.5-11.1); MONO % 9.2 % (3.8-10.2); NEUT % 65.7 % (42.8-82.8); PLATELET COUNT 370 10^3/uL (134-434); RBC 2.85 M/mm3 (3.60-5.2); RDW 14.1 % (11.6-15.6); WHITE BLOOD COUNT 6.7 K/mm3 (4.0-10.0)
[2024-02-14 08:55] LABS: CHLORIDE 110 mmol/L (98-107); POTASSIUM 4.2 mmol/L (3.5-5.1); SODIUM 141 mmol/L (136-145)
[2024-02-14 09:00] LABS: ALBUMIN 2.4 g/dl (3.4-5.0); ANION GAP 6 mmol/L (4-13); BLOOD UREA NITROGEN 19.7 mg/dL (7-18); CO2 25 mmol/L (21-32); GLUCOSE,RANDOM 102 mg/dL (74-106)
[2024-02-14 09:03] LABS: CREATININE 1.4 mg/dL (0.55-1.3); SGOT/AST 40 U/L (15-37); SGPT/ALT 62 U/L (13-61)
[2024-02-14 09:04] LABS: BILIRUBIN,TOTAL 0.6 mg/dL (0.2-1)
[2024-02-14 09:05] LABS: TOT PROT 6.4 g/dl (6.4-8.2)
[2024-02-14 09:06] LABS: ALK PHOS 103 U/L (45-117)
[2024-02-14] MEDS: ONDANSETRON 4 MG/2 ML VIAL IVPUSH PRN (09:36)
[2024-02-14] MEDS ORDERED: IOHEXOL (OMNIPAQUE PO) 12 MG/ML - 500 ML BOTTLE PO ONE (19:49)
[2024-02-15 09:56] LABS: BASO % 0.6 % (0-2.0); EOS % 0.7 % (0-4.5); HEMATOCRIT 26.2 % (32.4-45.2); HEMOGLOBIN 8.9 GM/dL (10.7-15.3); LYMPH % 19.4 % (8-40); MCH 31.9 pg (25.7-33.7); MCHC 34.1 g/dl (32.0-36.0); MEAN CELL VOLUME 93.6 fl (80-96); MEAN PLT VOLUME 7.3 fl (7.5-11.1); MONO % 8.6 % (3.8-10.2); NEUT % 70.7 % (42.8-82.8); PLATELET COUNT 373 10^3/uL (134-434); RDW 14.1 % (11.6-15.6); WHITE BLOOD COUNT 8.4 K/mm3 (4.0-10.0)
[2024-02-15 10:22] LABS: ALBUMIN 2.4 g/dl (3.4-5.0); BILIRUBIN,TOTAL 0.8 mg/dL (0.2-1); BLOOD UREA NITROGEN 23.5 mg/dL (7-18); CALCIUM 8.6 mg/dL (8.5-10.1); CREATININE 1.8 mg/dL (0.55-1.3); POTASSIUM 4.2 mmol/L (3.5-5.1); TOT PROT 6.4 g/dl (6.4-8.2)
[2024-02-15] MEDS: ACETAMINOPHEN 1000 MG/100 ML BAG IVPB ONE (11:22)
[2024-02-15] MEDS: LACTATED RINGERS SOLUTION 1,000 ML/1,000 ML INFUS.BAG IV SCH (17:41)
[2024-02-15] MEDS: ACETAMINOPHEN 1000 MG/100 ML BAG IVPB PRN (17:43)
[2024-02-15] MEDS: diphenhydrAMINE HCL 25 MG CAPSULE (FP) PO ONE (23:19)
[2024-02-15] MEDS: ATORVASTATIN CA 80 MG TABLET (FP) PO SCH (23:19)
[2024-02-16] MEDS ORDERED: INSULIN (LEVEMIR) 100 UNITS/ML UNITS SQ ONE (08:30)
[2024-02-16] MEDS: AMINO ACIDS/PROTEIN HYDROLYS 30 ML LIQUID.PKT PO SCH (10:20)
[2024-02-16] MEDS: LORazepam 2 MG/ML SDV VIAL IM PRN (10:20)
[2024-02-16] MEDS: amLODIPine BESYLATE 5 MG TABLET (FP) PO SCH (10:21)
[2024-02-16] MEDS: LISINOPRIL 5 MG TABLET PO SCH (10:21)
[2024-02-16] MEDS: MULTIVITAMINS THER W-MINERALS COMBO TABLET (FP) PO SCH (10:21)
[2024-02-16] MEDS: metoPROLOL SUCCINATE 25 MG TAB.SR.24H (FP) PO SCH (10:21)
[2024-02-16] MEDS: DEXTROSE 50%-WATER 25 GM/50 ML DISP.SYRIN IVPUSH ONE (12:56)
[2024-02-16] MEDS: METOCLOPRAMIDE HCL INJECTION 10 MG/2 ML VIAL IVPUSH PRN (14:33)
[2024-02-16] MEDS: traZODone HCL 50 MG TABLET (FP) PO SCH (22:05)
[2024-02-16] MEDS ORDERED: INSULIN (NOVOLOG) ASPART 100 UNITS/ML 10ML VIAL ONE (22:15)
[2024-02-17] MEDS: INSULIN (LEVEMIR) 100 UNITS/ML UNITS SQ SCH (06:41)
[2024-02-17] MEDS ORDERED: INSULIN (NOVOLOG) ASPART 100 UNITS/ML 10ML VIAL ONE ×2 (06:46→22:19)
[2024-02-17] MEDS ORDERED: REGADENOSON 0.4 MG/5 ML PRE-FILLED SYRINGE IVPUSH ONE (08:56)
[2024-02-17] MEDS: REGADENOSON 0.4 MG/5 ML PRE-FILLED SYRINGE IVPUSH ONE (11:00)
[2024-02-17] MEDS: LORazepam 2 MG/ML SDV VIAL IM ONE (20:26)
[2024-02-18] MEDS ORDERED: INSULIN (NOVOLOG) ASPART 100 UNITS/ML 10ML VIAL ONE ×2 (06:45→21:06)
[2024-02-18] MEDS: ACETAMINOPHEN 1000 MG/100 ML BAG IVPB PRN (21:37)
[2024-02-18] MEDS: MELATONIN 5 MG TABLETS PO ONE (22:33)
[2024-02-19 13:13] LABS: BASO % 0.4 % (0-2.0); EOS % 1.6 % (0-4.5); HEMATOCRIT 27.6 % (32.4-45.2); LYMPH % 22.7 % (8-40); MCH 30.7 pg (25.7-33.7); MCHC 32.7 g/dl (32.0-36.0); MEAN CELL VOLUME 94.1 fl (80-96); MONO % 5.7 % (3.8-10.2); NEUT % 69.6 % (42.8-82.8); PLATELET COUNT 347 10^3/uL (134-434); RBC 2.93 M/mm3 (3.60-5.2); RDW 13.6 % (11.6-15.6); WHITE BLOOD COUNT 6.1 K/mm3 (4.0-10.0)
[2024-02-19 13:32] LABS: CHLORIDE 110 mmol/L (98-107); POTASSIUM 4.3 mmol/L (3.5-5.1); SODIUM 143 mmol/L (136-145)
[2024-02-19 13:34] LABS: CALCIUM 9.1 mg/dL (8.5-10.1)
[2024-02-19 13:35] LABS: ALBUMIN 2.4 g/dl (3.4-5.0); ANION GAP 6 mmol/L (4-13); CO2 27 mmol/L (21-32); GLUCOSE,RANDOM 69 mg/dL (74-106)
[2024-02-19 13:38] LABS: CREATININE 1.5 mg/dL (0.55-1.3); SGOT/AST 34 U/L (15-37); SGPT/ALT 58 U/L (13-61)
[2024-02-19 13:40] LABS: BILIRUBIN,TOTAL 0.4 mg/dL (0.2-1); TOT PROT 6.2 g/dl (6.4-8.2)
[2024-02-19 13:41] LABS: ALK PHOS 91 U/L (45-117)
[2024-02-19] MEDS ORDERED: INSULIN (NOVOLOG) ASPART 100 UNITS/ML 10ML VIAL ONE (19:54)
[2024-02-19] MEDS: MELATONIN 5 MG TABLETS PO PRN (21:47)
[2024-02-19] MEDS: ACETAMINOPHEN 1000 MG/100 ML BAG IVPB ONE (22:58)
[2024-02-20] MEDS: LORazepam 1 MG TABLET PO ONE (12:18)
[2024-02-20] MEDS: LIDOCAINE 4% PATCH TP SCH (12:18)
[2024-02-20] MEDS: ACETAMINOPHEN 1000 MG/100 ML BAG IVPB PRN (12:18)
[2024-02-20] MEDS ORDERED: INSULIN (NOVOLOG) ASPART 100 UNITS/ML 10ML VIAL ONE (17:54)
[2024-02-20] MEDS: LIDOCAINE PATCH REMOVAL MC SCH (22:26)
[2024-02-21] MEDS ORDERED: INSULIN (NOVOLOG) ASPART 100 UNITS/ML 10ML VIAL ONE ×2 (11:13→17:15)
[2024-02-21] MEDS: KETOROLAC TROMETHAMINE 30 MG/1 ML VIAL IVPUSH ONE (15:20)
[2024-02-21] MEDS: LORazepam 1 MG TABLET PO ONE (16:36)
[2024-02-21] MEDS: ACETAMINOPHEN 1000 MG/100 ML BAG IVPB ONE (18:44)
[2024-02-21] MEDS: DOCUSATE SODIUM 100 MG CAPSULE (FP) PO PRN (22:39)
[2024-02-22] MEDS: ALBUTEROL SO4 HFA INHALER IH PRN (07:02)
[2024-02-22 08:36] LABS: BASO % 1.1 % (0-2.0); EOS % 0.7 % (0-4.5); HEMATOCRIT 28.8 % (32.4-45.2); HEMOGLOBIN 9.4 GM/dL (10.7-15.3); LYMPH % 23.8 % (8-40); MCH 30.5 pg (25.7-33.7); MCHC 32.5 g/dl (32.0-36.0); MEAN CELL VOLUME 93.9 fl (80-96); MEAN PLT VOLUME 8.1 fl (7.5-11.1); MONO % 6.5 % (3.8-10.2); NEUT % 67.9 % (42.8-82.8); PLATELET COUNT 327 10^3/uL (134-434); RBC 3.07 M/mm3 (3.60-5.2); RDW 13.5 % (11.6-15.6); WHITE BLOOD COUNT 7.7 K/mm3 (4.0-10.0)
[2024-02-22 08:52] LABS: POTASSIUM 3.7 mmol/L (3.5-5.1)
[2024-02-22 08:56] LABS: ALBUMIN 2.6 g/dl (3.4-5.0); CALCIUM 9.2 mg/dL (8.5-10.1)
[2024-02-22 08:59] LABS: BLOOD UREA NITROGEN 19.3 mg/dL (7-18); CREATININE 1.8 mg/dL (0.55-1.3)
[2024-02-22 09:01] LABS: TOT PROT 6.7 g/dl (6.4-8.2)
[2024-02-22 09:11] LABS: BILIRUBIN,TOTAL 0.8 mg/dL (0.2-1)
[2024-02-22] MEDS: POLYETHYLENE GLYCOL (HEALTHYLAX) 3350 17 GM PACKET PO PRN (10:38)
[2024-02-22] MEDS ORDERED: INSULIN (NOVOLOG) ASPART 100 UNITS/ML 10ML VIAL ONE (12:22)
[2024-02-22] MEDS: KETOROLAC TROMETHAMINE 30 MG/1 ML VIAL IVPUSH PRN (17:00)
[2024-02-22] MEDS: LORazepam 1 MG TABLET PO ONE ×2 (17:01→22:12)
[2024-02-22] MEDS: LORazepam 2 MG TABLET PO ONE (19:50)
[2024-02-22] MEDS: BACITRACIN ZINC 15 GM TUBE TOPICAL OINTMENT TP SCH (22:13)
[2024-02-23] MEDS: SUCRALFATE 1 GM/10 ML UNIT DOSE CUPS PO SCH (11:46)
[2024-02-23] MEDS ORDERED: INSULIN (NOVOLOG) ASPART 100 UNITS/ML 10ML VIAL ONE (12:07)
[2024-02-23] MEDS: LORazepam 1 MG TABLET PO ONE (14:53)
[2024-02-23] MEDS ORDERED: LEVOTHYROXINE NA 100 MCG TABLET (FP) PO SCH (22:12)
[2024-02-24] MEDS: LEVOTHYROXINE 200 MCG, LEVOTHYROXINE 75 MCG PO SCH (06:18)
[2024-02-24] MEDS: INSULIN (LEVEMIR) 100 UNITS/ML UNITS SQ SCH (06:19)
[2024-02-24] MEDS: LIOTHYRONINE SODIUM 5 MCG TABLET PO SCH (09:18)
[2024-02-24] MEDS ORDERED: INSULIN (NOVOLOG) ASPART 100 UNITS/ML 10ML VIAL ONE ×3 (17:04→21:15)
[2024-02-27 06:42] VITALS: PULSE 88
[2024-02-27 08:00] LABS: CHLORIDE 103 mmol/L (98-107); SODIUM 135 mmol/L (136-145)
[2024-02-27 08:50] LABS: ALBUMIN 2.2 g/dl (3.4-5.0); ANION GAP 4 mmol/L (4-13); CO2 28 mmol/L (21-32); CREATININE 2.1 mg/dL (0.55-1.3); SGPT/ALT 97 U/L (13-61)
[2024-02-27 08:51] LABS: ALK PHOS 98 U/L (45-117); BILIRUBIN,TOTAL 0.3 mg/dL (0.2-1); CALCIUM 8.4 mg/dL (8.5-10.1)
[2024-02-27 08:52] LABS: SGOT/AST 50 U/L (15-37); TOT PROT 5.5 g/dl (6.4-8.2)
[2024-02-27 08:53] LABS: GLUCOSE,RANDOM 470 mg/dL (74-106)
[2024-02-27 09:59] VITALS: BP 126/78; RESP 88; TEMP 98
== END 2024-02-27 11:20 | disposition home or self-care (01) | DRG 312 ==
LOC: JER 17:15 → JERBED 21:52 → J7W 23:32 → OBSVTOIN 01-19 11:26 → J7W 01-19 16:57 → J4S 01-19 20:24 → J8W 02-15 16:27
PROVIDERS: ADMIT Internal Medicine; ATTEND Internal Medicine
PROC: 2W1TX6Z Compression of Left Foot using Pressure Dressing (ICD-10-PCS; 2024-01-26)
PROC: 2W5 Placement, Anatomical Regions, Removal (ICD-10-PCS; 2024-01-26)
PROC: 0QBP0ZX Excision of Left Metatarsal, Open Approach, Diagnostic (ICD-10-PCS; 2024-01-26)
PROC: 3E0102A Introduction of Anti-Infective Envelope into Subcutaneous Tissue, Open Approach (ICD-10-PCS; 2024-01-26)
PROC: 0HRNXK3 Replacement of Left Foot Skin with Nonautologous Tissue Substitute, Full Thickness, External Approach (ICD-10-PCS; 2024-01-26)
PROC: 0JBR0ZZ Excision of Left Foot Subcutaneous Tissue and Fascia, Open Approach (ICD-10-PCS; principal; 2024-01-26 15:00)
PROC: 02HV33Z Insertion of Infusion Device into Superior Vena Cava, Percutaneous Approach (ICD-10-PCS; 2024-01-30)
PROC: B518ZZA Fluoroscopy of Superior Vena Cava, Guidance (ICD-10-PCS; 2024-01-30)
PROC: 30233N1 Transfusion of Nonautologous Red Blood Cells into Peripheral Vein, Percutaneous Approach (ICD-10-PCS; 2024-02-10)
DX: E10.69 Type 1 diabetes mellitus with other specified complication (principal); E10.43 Type 1 diabetes mellitus with diabetic autonomic (poly)neuropathy; M86.672 Other chronic osteomyelitis, left ankle and foot; K31.84 Gastroparesis; F11.20 Opioid dependence, uncomplicated; F41.0 Panic disorder [episodic paroxysmal anxiety]; D64.9 Anemia, unspecified; F03.90 Unspecified dementia, unspecified severity, without behavioral disturbance, psychotic disturbance, mood disturbance, and anxiety; I12.9 Hypertensive chronic kidney disease with stage 1 through stage 4 chronic kidney disease, or unspecified chronic kidney disease; L97.528 Non-pressure chronic ulcer of other part of left foot with other specified severity; E10.621 Type 1 diabetes mellitus with foot ulcer; E10.22 Type 1 diabetes mellitus with diabetic chronic kidney disease; N18.30 Chronic kidney disease, stage 3 unspecified; E78.00 Pure hypercholesterolemia, unspecified; E10.40 Type 1 diabetes mellitus with diabetic neuropathy, unspecified; E10.10 Type 1 diabetes mellitus with ketoacidosis without coma; R00.0 Tachycardia, unspecified; R11.2 Nausea with vomiting, unspecified; B95.7 Other staphylococcus as the cause of diseases classified elsewhere; B96.4 Proteus (mirabilis) (morganii) as the cause of diseases classified elsewhere; F41.9 Anxiety disorder, unspecified; M87.875 Other osteonecrosis, left foot; M25.562 Pain in left knee; M25.561 Pain in right knee; R45.851 Suicidal ideations; G44.209 Tension-type headache, unspecified, not intractable; W07.XXXA Fall from chair, initial encounter; Y92.231 Patient bathroom in hospital as the place of occurrence of the external cause; Y99.9 Unspecified external cause status; I31.39 Other pericardial effusion (noninflammatory); N17.9 Acute kidney failure, unspecified
CPT/HCPCS: 0241U-QW; 36415; 36430; 36569; 70450-TC; 71045-TC-FY; 71046-TC-FY; 73070-TC-RT-FY; 73560-TC-LT-FY; 73560-TC-RT-FY; 73630-TC-LT; 73720-LT; 74018-TC-FY; 74021-TC-FY; 74176-TC; 76705-TC; 76775-TC; 78452-TC; 80048; 80053; 80061; 81003; 82010; 82550; 82553; 82803; 82962; 83036; 83605; 83690; 83735; 83880; 84100; 84436; 84439; 84443; 84460; 84481; 84484; 84702; 85025; 85651; 86140; 86850; 86900; 86901; 86922; 87040; 87045; 87046; 87070; 87075; 87086; 87186; 87205; 87635; 93005; 93010; 93017; 93306-TC; 94760; 97116-GP; 97161-GP; 99285-25; A9502; C1713; G0378; G0480; J0131; J0878; J2785; J2997; P9058; Q4121

== ENCOUNTER 2024-03-04 08:24 | Observation (INO) | payer OTHER ==
[2024-03-04] MEDS ORDERED: FAMOTIDINE 20 MG/50 ML IVPB 20 MG/50 ML MG IVPB ONE (09:27)
[2024-03-04] MEDS ORDERED: ONDANSETRON 4 MG/2 ML VIAL ONE (09:27)
[2024-03-04] MEDS ORDERED: ACETAMINOPHEN INJECTION 100 ML IVPB ONE ×3 (09:27→22:34)
[2024-03-04] MEDS: FAMOTIDINE 20 MG/50 ML IVPB 20 MG/50 ML MG IVPB ONE (09:33)
[2024-03-04] MEDS: SODIUM CHLORIDE 0.9% 500 ML INFUS.BAG IV ONE (09:33)
[2024-03-04] MEDS: ONDANSETRON 4 MG/2 ML VIAL IVPUSH ONE (09:33)
[2024-03-04] MEDS: ACETAMINOPHEN 1000 MG/100 ML BAG IVPB ONE ×2 (09:33→16:51)
[2024-03-04 09:45] LABS: VENOUS BASE EXCESS -3.9 mmol/L (-2-2); VENOUS O2 SATURATION 46.3 % (70-80); VENOUS PCO2 27.5 mmHg (38-52); VENOUS PH 7.456 (7.310-7.410)
[2024-03-04 09:49] LABS: BASO % 0.7 % (0-2.0); EOS % 0.6 % (0-4.5); HEMATOCRIT 29.9 % (32.4-45.2); HEMOGLOBIN 9.9 GM/dL (10.7-15.3); LYMPH % 14.6 % (8-40); MCH 30.8 pg (25.7-33.7); MCHC 33.1 g/dl (32.0-36.0); MEAN CELL VOLUME 93.2 fl (80-96); MEAN PLT VOLUME 8.8 fl (7.5-11.1); MONO % 4.1 % (3.8-10.2); PLATELET COUNT 352 10^3/uL (134-434); RDW 13.7 % (11.6-15.6); WHITE BLOOD COUNT 6.7 K/mm3 (4.0-10.0)
[2024-03-04] MEDS ORDERED: METOCLOPRAMIDE HCL INJECTION 10 MG/2 ML VIAL ONE (09:53)
[2024-03-04 09:54] LABS: CALCIUM 8.9 mg/dL (8.5-10.1); CO2 20 mmol/L (21-32)
[2024-03-04 09:55] LABS: BLOOD UREA NITROGEN 17.8 mg/dL (7-18); INR 1.07 (0.83-1.09); MAGNESIUM 1.8 mg/dL (1.8-2.4); PROTHROMBIN TIME (PATIENT) 12.4 SEC (9.7-13.0)
[2024-03-04 09:56] LABS: SGOT/AST 18 U/L (15-37)
[2024-03-04 09:57] LABS: BILIRUBIN,TOTAL 0.9 mg/dL (0.2-1); CREATININE 1.7 mg/dL (0.55-1.3)
[2024-03-04 09:58] LABS: ACTIVATED PTT 31.7 SECONDS (25.2-36.5); ALK PHOS 85 U/L (45-117); TOT PROT 6.8 g/dl (6.4-8.2)
[2024-03-04] MEDS: METOCLOPRAMIDE HCL INJECTION 10 MG/2 ML VIAL IVPUSH ONE (10:03)
[2024-03-04 10:06] LABS: LACTIC ACID 2.4 mmol/L (0.4-2.0)
[2024-03-04 10:43] LABS: ANION GAP 14 mmol/L (4-13); CHLORIDE 105 mmol/L (98-107); SODIUM 139 mmol/L (136-145)
[2024-03-04 10:46] LABS: ALBUMIN 2.7 g/dl (3.4-5.0); GLUCOSE,RANDOM 436 mg/dL (74-106); SGPT/ALT 43 U/L (13-61)
[2024-03-04] MEDS ORDERED: HYDROmorphone HCl 2 MG/ML VIAL ONE (11:45)
[2024-03-04] MEDS: LACTATED RINGERS SOLUTION 1000 ML INFUS.BAG IV ONE (11:49)
[2024-03-04] MEDS: HYDROmorphone HCl 2 MG/ML VIAL IVPUSH ONE (11:50)
[2024-03-04 12:00] LABS: EPI CELLS >36 /uL (0-25.1); HYALINE CASTS 1 /uL (0-3.1); PH,URINE 6.5 (5.0-8.0); URINE APPEARANCE CLEAR; URINE BACTERIA 58 /uL (0-1359); URINE BILIRUBIN NEGATIVE (NEGATIVE); URINE COLOR YELLOW; URINE GLUCOSE (UA) 3+ (NEGATIVE); URINE KETONE 2+ (NEGATIVE); URINE LEUK ESTERASE NEGATIVE (NEGATIVE); URINE NITRITE NEGATIVE (NEGATIVE); URINE PROTEIN 3+ (NEGATIVE); URINE RBC 61 /uL (0-23.9); URINE UROBILINOGEN 0.2 mg/dL (0.2-1.0); URINE WBC 53 /uL (0-25.8)
[2024-03-04] MEDS ORDERED: INSULIN REGULAR HUMAN 100 UNITS/ML *VIAL ONE (12:02)
[2024-03-04] MEDS: INSULIN REGULAR 100 UNITS in SODIUM CHLORIDE 99 ML IVPB SCH (12:09)
[2024-03-04] MEDS: INSULIN DRIP - PLEASE ORDER UNDER SETS NR ONE (12:17)
[2024-03-04] MEDS ORDERED: POTASSIUM CHLORIDE ORAL LIQUID 20 MEQ/15 ML ONE (12:33)
[2024-03-04] MEDS: POTASSIUM CHLORIDE ORAL LIQUID 20 MEQ/15 ML PO ONE (12:33)
[2024-03-04 14:55] LABS: VENOUS BASE EXCESS -6.4 mmol/L (-2-2); VENOUS O2 SATURATION 75.6 % (70-80); VENOUS PCO2 36.7 mmHg (38-52); VENOUS PH 7.33 (7.310-7.410)
[2024-03-04 15:16] LABS: POTASSIUM 3.6 mmol/L (3.5-5.1)
[2024-03-04 15:17] LABS: CALCIUM 8.5 mg/dL (8.5-10.1)
[2024-03-04 15:18] LABS: ALBUMIN 2.6 g/dl (3.4-5.0); BLOOD UREA NITROGEN 21.2 mg/dL (7-18)
[2024-03-04] MEDS: LACTATED RINGERS SOLUTION 1,000 ML/1,000 ML INFUS.BAG IV STA (15:19)
[2024-03-04 15:21] LABS: CREATININE 1.7 mg/dL (0.55-1.3)
[2024-03-04 15:22] LABS: BILIRUBIN,TOTAL 0.7 mg/dL (0.2-1)
[2024-03-04 15:23] LABS: TOT PROT 6.8 g/dl (6.4-8.2)
[2024-03-04] MEDS: INSULIN ASPART SLIDING SCALE (NOVOLOG) 1 VIAL SQ SCH ×2 (16:47→23:01)
[2024-03-04] MEDS: COLLAGENASE CLOSTRIDIUM HIST. 30 GRAMS TUBE TP SCH (17:01)
[2024-03-04] MEDS ORDERED: ACETAMINOPHEN 500 MG TABLET (FP) PO PRN (17:45)
[2024-03-04] MEDS ORDERED: PANTOPRAZOLE 40 MG TABLET PO ONE (17:51)
[2024-03-04] MEDS ORDERED: MAG HYDROX/AL HYDROX/SIMETH 30 ML UNIT-DOSE CUP ONE (17:51)
[2024-03-04] MEDS: MAG HYDROX/AL HYDROX/SIMETH 30 ML UNIT-DOSE CUP PO PRN (17:56)
[2024-03-04] MEDS: PANTOPRAZOLE 40 MG TABLET PO SCH (17:56)
[2024-03-04] MEDS: INSULIN (NOVOLOG) ASPART 100 UNITS/ML 10ML VIAL SQ SCH (18:54)
[2024-03-04] MEDS: LACTATED RINGERS SOLUTION 1,000 ML/1,000 ML INFUS.BAG IV SCH (19:00)
[2024-03-04] MEDS ORDERED: METOCLOPRAMIDE HCL 10 MG TABLET (FP) PO ONE (22:33)
[2024-03-04] MEDS ORDERED: BACLOFEN 10 MG TABLET (FP) ONE (22:33)
[2024-03-04] MEDS ORDERED: ATORVASTATIN CA 80 MG TABLET (FP) ONE (22:33)
[2024-03-04] MEDS ORDERED: HEPARIN NA (PORCINE) 5,000 UNITS/ML 1ML VIAL ONE (22:34)
[2024-03-04] MEDS ORDERED: INSULIN (LEVEMIR) 100 UNITS/ML UNITS SQ ONE (22:34)
[2024-03-04] MEDS ORDERED: INSULIN (NOVOLOG) ASPART 100 UNITS/ML 10ML VIAL ONE (22:34)
[2024-03-04] MEDS: HEPARIN NA (PORCINE) 5,000 UNITS/ML 1ML VIAL SQ SCH (22:49)
[2024-03-04] MEDS: BACLOFEN 10 MG TABLET (FP) PO SCH (22:49)
[2024-03-04] MEDS: METOCLOPRAMIDE HCL 10 MG/10 ML UNIT DOSE CUP PO SCH (22:49)
[2024-03-04] MEDS: ATORVASTATIN CA 80 MG TABLET (FP) PO SCH (22:49)
[2024-03-04] MEDS: INSULIN (LEVEMIR) 100 UNITS/ML UNITS SQ SCH (23:01)
[2024-03-05] MEDS: ACETAMINOPHEN 1000 MG/100 ML BAG IVPB PRN (00:25)
[2024-03-05] MEDS: MELATONIN 1 MG TABLET PO PRN (00:26)
[2024-03-05 02:39] VITALS: BMI 29.9
[2024-03-05] MEDS: ONDANSETRON 4 MG/2 ML VIAL IVPUSH PRN (02:40)
[2024-03-05] MEDS ORDERED: INSULIN (LEVEMIR) 100 UNITS/ML UNITS SQ ONE (05:16)
[2024-03-05] MEDS: LEVOTHYROXINE NA 125 MCG TABLET (FP) PO SCH (06:12)
[2024-03-05 09:50] LABS: BASO % 0.6 % (0-2.0); EOS % 0.4 % (0-4.5); HEMOGLOBIN 7.8 GM/dL (10.7-15.3); MCH 30.6 pg (25.7-33.7); MCHC 32.6 g/dl (32.0-36.0); MEAN CELL VOLUME 93.8 fl (80-96); MEAN PLT VOLUME 8.2 fl (7.5-11.1); MONO % 7.6 % (3.8-10.2); NEUT % 74.4 % (42.8-82.8); PLATELET COUNT 308 10^3/uL (134-434); RBC 2.56 M/mm3 (3.60-5.2); RDW 13.7 % (11.6-15.6); WHITE BLOOD COUNT 8.2 K/mm3 (4.0-10.0)
[2024-03-05 10:16] LABS: POTASSIUM 3.9 mmol/L (3.5-5.1)
[2024-03-05 10:17] LABS: CALCIUM 8.7 mg/dL (8.5-10.1)
[2024-03-05 10:18] LABS: BLOOD UREA NITROGEN 16.6 mg/dL (7-18)
[2024-03-05 10:21] LABS: CREATININE 1.5 mg/dL (0.55-1.3)
[2024-03-05] MEDS: metoPROLOL SUCCINATE 25 MG TAB.SR.24H (FP) PO SCH (10:52)
[2024-03-05] MEDS: ACETAMINOPHEN 1000 MG/100 ML BAG IVPB SCH (11:05)
[2024-03-05 11:18] VITALS: RESP 20
[2024-03-05] MEDS: LIDOCAINE 4% PATCH TP SCH (11:40)
[2024-03-05] MEDS: GABAPENTIN 300 MG CAPSULE PO SCH (11:40)
[2024-03-05 15:36] VITALS: BP 114/84; PULSE 103; TEMP 98.8
[2024-03-05] MEDS: IBUPROFEN 400 MG TABLET (FP) PO SCH (15:59)
[2024-03-05] MEDS ORDERED: INSULIN (NOVOLOG) ASPART 100 UNITS/ML 10ML VIAL ONE (16:45)
[2024-03-05] MEDS ORDERED: DULoxetine HCL 30 MG CAPSULE.DR PO SCH (22:00)
[2024-03-05] MEDS ORDERED: LIDOCAINE PATCH REMOVAL MC SCH (22:00)
== END 2024-03-05 17:13 | disposition home or self-care (01) ==
LOC: JER 08:24 → UNDOADMOB 16:19 → JERBED 16:19 → OBSVTOIN 17:37 → INTOOBSV 17:37 → J8W 23:51 → JERBED 23:51 → J8W 03-05 10:41 → JERBED 03-05 10:41
PROVIDERS: ADMIT Internal Medicine; ATTEND Nurse Practitioner Family
PROC: 3E033NZ Introduction of Analgesics, Hypnotics, Sedatives into Peripheral Vein, Percutaneous Approach (ICD-10-PCS; principal; 2024-03-05)
PROC: 3E013VG Introduction of Insulin into Subcutaneous Tissue, Percutaneous Approach (ICD-10-PCS; 2024-03-05)
PROC: 3E0337Z Introduction of Electrolytic and Water Balance Substance into Peripheral Vein, Percutaneous Approach (ICD-10-PCS; 2024-03-05)
PROC: 3E033GC Introduction of Other Therapeutic Substance into Peripheral Vein, Percutaneous Approach (ICD-10-PCS; 2024-03-05)
DX: E13.10 Other specified diabetes mellitus with ketoacidosis without coma (principal); E10.22 Type 1 diabetes mellitus with diabetic chronic kidney disease; E10.621 Type 1 diabetes mellitus with foot ulcer; E03.9 Hypothyroidism, unspecified; Z88.8 Allergy status to other drugs, medicaments and biological substances; R11.2 Nausea with vomiting, unspecified
CPT/HCPCS: 36415; 71045-TC-FY; 80048; 80053; 81003; 82010; 82803; 82962; 83605; 83690; 83735; 84484; 84703; 85025; 85610; 85730; 87086; 93005; 93010; 96361; 96365; 96366; 96372; 96375; 96376; 99285-25; G0378; J0131; J0475; J1644

== ENCOUNTER 2024-04-06 09:58 | Emergency (ER) | payer OTHER ==
[2024-04-06 10:29] VITALS: TEMP 97.6; BMI 32.9
[2024-04-06] MEDS ORDERED: ONDANSETRON 4 MG/2 ML VIAL ONE (10:33)
[2024-04-06] MEDS: ONDANSETRON 4 MG/2 ML VIAL IVPB ONE (10:45)
[2024-04-06] MEDS ORDERED: DEXTROSE 50%-WATER 25 GM/50 ML DISP.SYRIN ONE (11:12)
[2024-04-06 11:13] LABS: VENOUS BASE EXCESS -4.5 mmol/L (-2-2); VENOUS PCO2 49.6 mmHg (38-52); VENOUS PH 7.277 (7.310-7.410)
[2024-04-06 11:17] LABS: BASO % 0.9 % (0-2.0); EOS % 3.4 % (0-4.5); HEMATOCRIT 27.9 % (32.4-45.2); HEMOGLOBIN 9.2 GM/dL (10.7-15.3); LYMPH % 22.9 % (8-40); MCH 31.5 pg (25.7-33.7); MCHC 32.9 g/dl (32.0-36.0); MEAN CELL VOLUME 95.7 fl (80-96); MEAN PLT VOLUME 7.2 fl (7.5-11.1); MONO % 9.4 % (3.8-10.2); NEUT % 63.4 % (42.8-82.8); PLATELET COUNT 403 10^3/uL (134-434); RBC 2.91 M/mm3 (3.60-5.2); RDW 15.6 % (11.6-15.6); WHITE BLOOD COUNT 6.1 K/mm3 (4.0-10.0)
[2024-04-06] MEDS: SODIUM CHLORIDE 0.9% 500 ML INFUS.BAG IV ONE (11:20)
[2024-04-06] MEDS: DEXTROSE 50%-WATER - 25 GM/50 ML VIAL IVPUSH ONE (11:20)
[2024-04-06] MEDS ORDERED: ACETAMINOPHEN INJECTION 100 ML IVPB ONE (11:32)
[2024-04-06] MEDS: ACETAMINOPHEN 1000 MG/100 ML BAG IVPB ONE (11:35)
[2024-04-06 11:43] LABS: POTASSIUM 4.7 mmol/L (3.5-5.1)
[2024-04-06 11:46] LABS: BLOOD UREA NITROGEN 28.9 mg/dL (7-18); CALCIUM 8.7 mg/dL (8.5-10.1)
[2024-04-06 11:47] LABS: ALBUMIN 2.3 g/dl (3.4-5.0); MAGNESIUM 2.5 mg/dL (1.8-2.4)
[2024-04-06 11:50] LABS: CREATININE 1.6 mg/dL (0.55-1.3)
[2024-04-06 11:52] LABS: BILIRUBIN,TOTAL 0.2 mg/dL (0.2-1)
[2024-04-06] MEDS ORDERED: BACLOFEN 10 MG TABLET (FP) ONE (14:37)
[2024-04-06] MEDS: BACLOFEN 10 MG TABLET (FP) PO ONE (14:38)
[2024-04-06 15:23] VITALS: BP 157/102; PULSE 97; RESP 16
== END 2024-04-06 15:41 | disposition home or self-care (01) ==
LOC: JER 09:58
PROC: 3E030NZ Introduction of Analgesics, Hypnotics, Sedatives into Peripheral Vein, Open Approach (ICD-10-PCS; principal; 2024-04-06)
PROC: 3E030GC Introduction of Other Therapeutic Substance into Peripheral Vein, Open Approach (ICD-10-PCS; 2024-04-06)
DX: E10.43 Type 1 diabetes mellitus with diabetic autonomic (poly)neuropathy (principal); E10.649 Type 1 diabetes mellitus with hypoglycemia without coma; I12.9 Hypertensive chronic kidney disease with stage 1 through stage 4 chronic kidney disease, or unspecified chronic kidney disease; E10.22 Type 1 diabetes mellitus with diabetic chronic kidney disease; N18.30 Chronic kidney disease, stage 3 unspecified; R42 Dizziness and giddiness; R11.0 Nausea; R10.84 Generalized abdominal pain; M54.9 Dorsalgia, unspecified
CPT/HCPCS: 36415; 80053; 82010; 82803; 82962; 83690; 83735; 84703; 85025; 93005; 93010; 96374; 96375; 99284-25; J0131; J0475